=== PATIENT | female | born 1950 | race Caucasian/White ===

== ENCOUNTER 2020-03-29 12:32 | Inpatient (IN) | payer MEDICARE, OTHER ==
[~2020-03-29] VITALS: Ht 165.1 cm; Wt 56.8 kg
[~2020-03-29 12:32] MED LIST: BENTYL 20MG20 MG/TAB PO; EFFEXOR-XR150 MG PO; FOLIC ACID 11 MG/TA1 PO; LASIX 20MG TABL20 MG PO; PHENERGAN 25 TA25 MG PO; PLAQUENIL 200M200 MG PO; PREDNISONE 5MG5 MG PO; PREDNISONE10 MG PO; PROBIOTIC FORMU1 CAP PO; TOPROL XL 50MG50 MG PO; WELLBUTRIN XL150 MG PO; XARELTO20 MG PO
[2020-03-29 13:12] LABS: BASO # 0.1 (0.0-0.2); EOS % 0.3 % (0-4.0); GRAN # 3.3 (1.4-6.5); GRAN % 58.4 % (42.2-75.2); HEMOGLOBIN 10.4 g/dl (12.5-16.0); LYMPH # 1.5 (1.2-3.4); LYMPH % 26.7 % (20.0-51.0); MEAN CELL VOLUME 75 fl (80.0-100.0); MEAN CORPUSCULAR HEMOGLOBIN 23 pg (27.0-31.0); MEAN CORPUSCULAR HGB CONC 31 g/dl (33.0-37.0); MEAN PLATELET VOLUME 9.8 fl (7.4-10.4); MONO # 0.7 (0.1-0.6); MONO % 12.2 % (1.7-9.3); PLATELET COUNT 359 K/mm3 (130-400); RED BLOOD COUNT 4.54 M/mm3 (4.10-5.30); REDCELL DISTRIBUTION WIDTH-CV 20.4 % (11.5-14.5)
[2020-03-29 13:14] LABS: HEMATOCRIT 33.9 % (37.0-47.0)
[2020-03-29 13:28] LABS: ALBUMIN 2.8 gm/dL (3.5-5.0); BILIRUBIN,TOTAL 0.3 mg/dL (0.0-1.0); C-REACTIVE PROTEIN 5.7 mg/dL (0.0-0.9); CREATININE, serum 1.1 (0.52-1.25); POTASSIUM 3.4 mmol/L (3.4-5.0); TOTAL PROTEIN 4.9 gm/dL (6.4-8.2)
[2020-03-29 13:42] LABS: TROPONIN-I 0.182 ng/mL (0.000-0.035)
[2020-03-29 14:51] LABS: COLLECTION METHOD CLEAN CATCH
[2020-03-29] MEDS ORDERED: XARELTO20 MG PO (14:54)
[2020-03-29] MEDS ORDERED: PHENERGAN 25 TA25 MG PO (14:55)
[2020-03-29] MEDS ORDERED: TOPROL XL 50MG50 MG PO (14:56)
[2020-03-29] MEDS ORDERED: WELLBUTRIN XL150 MG PO (14:57)
[2020-03-29] MEDS ORDERED: ENTRESTO 24 MG1 EACH PO (14:57)
[2020-03-29 14:59] LABS: MUCOUS Present /lpf; PH 5 (5-8); SQUAMOUS EPITHELIAL 0-2 /hpf; URINE APPEARANCE Clear; URINE BACTERIA None Seen /hpf; URINE BILIRUBIN Negative (NEGATIVE); URINE BLOOD Negative (NEGATIVE); URINE COLOR Yellow; URINE GLUCOSE Negative (NEGATIVE); URINE KETONE Negative (NEGATIVE); URINE LEUKOCYTE ESTERASE Negative (NEGATIVE); URINE NITRATE Negative (NEGATIVE); URINE PROTEIN(semi-quant) Negative (NEGATIVE); URINE RBC 0-2 /hpf; URINE UROBILINOGEN Negative (NEGATIVE)
[2020-03-29] MEDS ORDERED: BENTYL 20MG20 MG/TAB PO (14:59)
[2020-03-29] MEDS ORDERED: PLAQUENIL 200M200 MG PO (14:59)
[2020-03-29] MEDS ORDERED: PREDNISONE10 MG PO (15:00)
[2020-03-29] MEDS ORDERED: SYNTHROID0.05 MG/TA PO (15:01)
[2020-03-29] MEDS ORDERED: MILLIPRED5 MG PO (15:02)
[2020-03-29] MEDS ORDERED: FOLIC ACID800 MCG PO (15:03)
[2020-03-29] MEDS ORDERED: PROBIOTIC FORMU1 CAP (15:04)
[2020-03-29] MEDS ORDERED: VITAMIN B122500 MCG SL (15:05)
[2020-03-29] MEDS ORDERED: OS-CAL 500 + D1 TAB (15:06)
[2020-03-29 18:22] VITALS: BP 115/78; PULSE 84; TEMP 99.2
[2020-03-29 19:16] VITALS: BP 110/70; PULSE 115; TEMP 98.4
--- NOTE | 2020-03-29 22:22 | NUR ---
Patient alert and oriented x4. Patient sitting up in bed and watching TV upon enter the room. Blood draw done at this time and sent to lab for checking Troponin level. Patient denies chest pain or SOB, and denies N/V. Breathing even and unlabored. Patient states having some minor headache and dizziness. Denies need for any PRN Tylenol for headache at this time. Left lower leg skin tear site covered with dry gauze. Dressing clean/dry/intact. Lots of bruises noted to bilateral arms and lower legs. Offered dinner tray. Patient is eating dinner. Patient denies any needs at this time. Call light within reach. Encouraged patient to call the nurse if she needs anything. Patient agreed.
[2020-03-29 23:23] VITALS: BP 115/75; PULSE 112; TEMP 98.7
[2020-03-30] VITALS (8 sets, daily range): BP systolic 106–122; BP diastolic 70–88; PULSE 98–144; TEMP 98.4–102.7
--- NOTE | 2020-03-30 02:07 | NUR ---
Lab draw done at 0000 am and sent to lab for checking of Troponin level. Assisted patient to the bathroom to void. Patient states feeling a little dizzy upon stand up. Encouraged patient to rest and pace activities. 1 person assist needed due to dizziness and unsteady gait. PRN Zofran given at 00:17 am per patient request for nausea. HOB elevated to 60 degree. Patient denies further needs at this time.
--- NOTE | 2020-03-30 04:39 | NUR ---
Patient HR was 130 at 04:30 am. Patient denies chest pain. Placed ECG order per protocol. Called respiratory therapy and updated HR. Respiratory therapy staff in the room with patient at this time.
--- NOTE | 2020-03-30 06:13 | NUR ---
Patient was c/o chest pain on numeric pain scale 6/10. Patient states having some nausea, chills, and shivering. Temp was 102.7 F at 05:15 am. PRN Morphine given for pain at 05:23 am. PRN Zofran given for nausea. PRN Tylenol given for fever. Tamera PEREZ notified Evi MILLER via phone. Lindsay consent signed by patient. Patient resting in bed with eyes closed at 06:00 am. Pain level on FLACC scale is 0 out of 10 at this time.
[2020-03-30 07:05] LABS: HEMOGLOBIN 10.4 g/dl (12.5-16.0); MEAN CELL VOLUME 76 fl (80.0-100.0); MEAN CORPUSCULAR HEMOGLOBIN 23 pg (27.0-31.0); MEAN CORPUSCULAR HGB CONC 31 g/dl (33.0-37.0); MEAN PLATELET VOLUME 10.4 fl (7.4-10.4); PLATELET COUNT 337 K/mm3 (130-400); RED BLOOD COUNT 4.47 M/mm3 (4.10-5.30); REDCELL DISTRIBUTION WIDTH-CV 20.4 % (11.5-14.5)
[2020-03-30 07:14] LABS: BILIRUBIN,TOTAL 0.3 mg/dL (0.0-1.0); CALCIUM 8.2 mg/dL (8.4-10.2); CHOLESTEROL RISK RATIO 4.1; CREATININE, serum 0.87 (0.52-1.25); MAGNESIUM 1.8 mg/dL (1.6-2.3); POTASSIUM 3.3 mmol/L (3.4-5.0); TOTAL PROTEIN 5.2 gm/dL (6.4-8.2)
[2020-03-30 07:27] LABS: HEMATOCRIT 33.9 % (37.0-47.0)
--- NOTE | 2020-03-30 08:03 | NUR ---
SHIFT REPORT RECEIVED AND PT SEEN shortly after. denies chest pain or any pain. on Tele pulse 129. AOX4. NPO since midnight for Lexiscan vs Heart cath. Call ligth within reach. no other needs at this time
--- NOTE | 2020-03-30 08:52 | NUR ---
PT 89% on RA at rest. placed on 2L NC with O2 sat improved to 94%. pulse increased to 150s during bed assessment but pt denies any chest pain. seen a few minutes prior by Dr Geronimo and order for pt to eat, start nitro patch and await results. pt also complains of head fullness. no nausea at this time but reported some overnight. call light within reach
--- NOTE | 2020-03-30 11:49 | NUR ---
Attempted to send in loop recorder reading @ 1030 but could not find device in patient. she is addamant she has one. charge nurse Tamiko requested to try
--- NOTE | 2020-03-30 12:35 | NUR ---
PT FOUND ON ROOM AIR. SHE FORGOT TO REPLACE OXYGEN ON FACE. 89% RA AND 94% 2L NC. EDUCATED IN IMPORTANCE OF NC
[2020-03-30 13:05] LABS: IRON,SERUM 43 ug/dL (35-150)
[2020-03-30 13:15] LABS: TOTAL IRON BINDING CAPACITY 295 ug/dL (265-497)
--- NOTE | 2020-03-30 16:10 | NUR ---
The patient is a Covid-19 PUI. PCR pending. Oral Surgery Technician met with the patient to complete initial intake. The patient lives alone in [place]. The patient has a walker which she uses to ambulate all the time and she has a wheelchair that she uses when she need to. The patient also has a shower chair and shower bar for support. Per EMR, the patient's PCP Dr. Kurtz and pharmacy is [facility] in [facility]. The patient does not have advanced directives. The patient is legally and has two children, Aneta and Amos. The patient is currently on 2L of oxygen and may need it at discharge. The patient is currently walking 20 feet with PT. She was open to sending referrals to post acute rehab, if needed. The first choice is [facility] and [facility]. Referrals sent. SW will follow to ensure the safest discharge disposition.
--- NOTE | 2020-03-30 16:41 | NUR ---
report given to oncoming nurse Shaheed. call light within reach. unable to send in loop recording as unable to find it on pt. She is certain she has a [employer] loop recorder. Rony currently charging
--- NOTE | 2020-03-30 22:55 | NUR ---
Patient sitting up in bed and watching TV upon enter the room. Patient A/Ox4. Patient denies chest pain while at rest. Patient reports she has chest pain upon ambulating to the bathroom. Patient denies SOB or dyspnea while at rest. Currently on Oxygen 2L via NC. Breathing even and unlabored. Patient states having some headache. PRN Tylenol and scheduled meds given per JUN. Patient also states feeling hot. Checked Temp at this time and it was 98.8F. Turned room heater down per patient request. Patient reports she is feeling dizzy and light headed when she ambulates to the bathroom. Encouraged patient to call the nurse when she needs to go to bathroom. Patient agreed. Left wrist IV site has no s/s of complications. Flushed with 5ml NS with no difficulty. Right forearm IV site slightly swollen and patient reports pain upon flushing with NS. Removed right forearm IV and covered with band-aid. Call light within reach. Patient denies further needs at this time. . Call light within reach.
[2020-03-31] VITALS (7 sets, daily range): BP systolic 84–128; BP diastolic 57–88; PULSE 84–124; TEMP 98–98.6
--- NOTE | 2020-03-31 06:14 | NUR ---
Patient slept well throughout the shift. Morning med given per order. Patient denies any pain or discomfort at this time. Call light within reach.
[2020-03-31 07:19] LABS: HEMOGLOBIN 10.5 g/dl (12.5-16.0); MEAN CELL VOLUME 76 fl (80.0-100.0); MEAN CORPUSCULAR HEMOGLOBIN 23 pg (27.0-31.0); MEAN CORPUSCULAR HGB CONC 30 g/dl (33.0-37.0); MEAN PLATELET VOLUME 10.4 fl (7.4-10.4); PLATELET COUNT 341 K/mm3 (130-400); RED BLOOD COUNT 4.54 M/mm3 (4.10-5.30); REDCELL DISTRIBUTION WIDTH-CV 21.2 % (11.5-14.5)
[2020-03-31 07:20] LABS: HEMATOCRIT 34.7 % (37.0-47.0)
--- NOTE | 2020-03-31 07:25 | NUR ---
REPORT received and pt seen shortly after. appears asleep. no s/s distress. pulse 80s on monitor.
[2020-03-31 07:32] LABS: CALCIUM 8.5 mg/dL (8.4-10.2); CREATININE, serum 0.89 (0.52-1.25); MAGNESIUM 2.1 mg/dL (1.6-2.3); POTASSIUM 3.9 mmol/L (3.4-5.0)
--- NOTE | 2020-03-31 08:48 | NUR ---
Morning meds given. pt denies current pain, nausea or cough. reports some chest pain/pressure with ambulation. encouraged to call for assistance. eating breakfast. reports dry cough overnght but none this shift. 90 to 94% O2 sat on RA. Tele on. made aware of negative Covid PCR. VSS. T 98.0 axillary
[2020-03-31 09:15] LABS: ANISOCYTOSIS 3+; BAND 5 % (0-10); BASOPHIL 1 % (0-2); LYMPHOCYTE 46 % (20.0-51.0); NEUTROPHILS 42 % (42.0-75.2); PLATELET ESTIMATE NORMAL (NORMAL)
[2020-03-31 09:16] LABS: HYPOCHROMIA 1+; OVALOCYTES 2+
--- NOTE | 2020-03-31 11:00 | NUR ---
LEFT GARCIA WOUND ASSESSED: longest length 6cm by widest 3cm. heart shaped. beefy red base with slight yellow to anterior aspect. previous petroleum dressing replaced with aquacell AG and optifoam. site mildly tender. scant serosanguinous drainage. no foul odor noted. some maceration to border but well defined. area cleansed with saline.
--- NOTE | 2020-03-31 13:09 | NUR ---
PT ambulated from bathroom @ 1130. reported feeling very dizzy and knees buckling. was able to ambulate 1 assist with encouragement to bed and recovered from tachypnea an tachycardia in <5 mins to a HR 95. VS taken and SBP <90 lying down. she reports increased diziness lying flat. orthostatic BPs done with increasing systolic with position increase. pulse increased as well to a max of 128 while standing. pt was breathing heavy, had to be reminded to open her eyes and hold herself up. denies passing out but reports being on the brink. She stated dizzy spells were happening often at home most often after visiting bathroom. Sheyla MILLER notified and order reveived for 500ml fluid bolus and to remove nitro patch. LT wrist IV infiltrated thus new one started. pt reported headache with dizziness episode but resolved once lying down. bed alarm on.
--- NOTE | 2020-03-31 22:40 | NUR ---
Patient laying in bed and watching TV upon enter the room. Patient pleasant, A/O x4. Patient denies chest pain, SOB, N/V, or dizziness while at rest. Patient reports she has chest pain, SOB, and dizziness upon getting up from bed and ambulates to the bathroom. Emphasized importance of safety and encouraged patient to call the nurse when she needs to go to bathroom. Patient verbalized understanding. Scheduled meds given per order. Patient took medications without difficulty. Right wrist IV site has no s/s of complications. Flushed with NS without any difficulty. Offered Charles crackers per patient request. Call light within reach. Patient denies further needs at this time.
[2020-04-01] VITALS (7 sets, daily range): BP systolic 102–125; BP diastolic 66–80; PULSE 78–115; TEMP 98–98.4
--- NOTE | 2020-04-01 04:22 | NUR ---
Assited patient to the bathroom at 03:30 am. Stand-by assist needed. Patient ambulates with a walker steady gait. No c/o chest pain, SOB or dizziness at this time. Patient reports she feels much better this morning. Call light within reach. Patient denies any needs.
[2020-04-01 06:35] LABS: BASO % 0.5 % (0.0-2.0); EOS % 0.7 % (0-4.0); GRAN # 2.8 (1.4-6.5); HEMOGLOBIN 10.3 g/dl (12.5-16.0); LYMPH # 2.2 (1.2-3.4); LYMPH % 38.1 % (20.0-51.0); MEAN CELL VOLUME 78 fl (80.0-100.0); MEAN CORPUSCULAR HEMOGLOBIN 24 pg (27.0-31.0); MEAN CORPUSCULAR HGB CONC 30 g/dl (33.0-37.0); MONO # 0.7 (0.1-0.6); MONO % 11.8 % (1.7-9.3); PLATELET COUNT 365 K/mm3 (130-400); RED BLOOD COUNT 4.37 M/mm3 (4.10-5.30); REDCELL DISTRIBUTION WIDTH-CV 21.5 % (11.5-14.5)
[2020-04-01 06:39] LABS: HEMATOCRIT 34.1 % (37.0-47.0)
[2020-04-01 06:52] LABS: CALCIUM 8.9 mg/dL (8.4-10.2); CREATININE, serum 0.86 (0.52-1.25); POTASSIUM 3.9 mmol/L (3.4-5.0)
--- NOTE | 2020-04-01 07:19 | NUR ---
BEdside shift report received. pt resting in bed with eyes closed. no s/s distress. bed alarm on. HR 75 on tele. no s/s distress
--- NOTE | 2020-04-01 08:40 | NUR ---
Morning meds given. pt reports mild acid reflux pain with breakfast. denies chect pain. dressing to lt martin intact and dry. LCTA. HRRR. call light within reach
--- NOTE | 2020-04-01 12:18 | NUR ---
attempted to call ortho tech yesterday with no response. Spoke to radiology today and she states tech was called in for ER case and contreras call this nurse regarding pending ABD US order. per radiology, US tech did not see order requisition. will F/U
--- NOTE | 2020-04-01 19:20 | NUR ---
Patient assessed at this time. Alert and oriented x 4, and able to make needs known. Denies having pain and discomfort at this time. Peripheral INT to right wrist. Denies SOB and dyspnea. LS CTA. Respirations even and unlabored. HRR. Telemetry in place: normal sinus. Capillary refill less than 3 seconds. Non-tenting skin turgor. BSAx4. Abdomen soft and non-tender. No edema. Dressing to skin tear on left martin is CDI. BUE and BLE have bruising/discoloration. Reminded patient that she will be NPO after midnight, and voiced understanding. Voices no questions, needs, or concerns at this time. Resting in bed with call light within reach.
[2020-04-02] VITALS (19 sets, daily range): BP systolic 91–143; BP diastolic 57–85; PULSE 75–113; TEMP 97.8–98.6
--- NOTE | 2020-04-02 06:16 | NUR ---
Patient has been resting in bed with call light within reach. Voices no questions, needs, or concerns at this time. Has been NPO for Lexiscan scheduled for today.
--- NOTE | 2020-04-02 07:34 | NUR ---
Patient is off the Medical floor and down in Nuc.Med for Lexiscan at this time
--- NOTE | 2020-04-02 10:00 | NUR ---
Patient just arrived back from her Lexiscan stress test at this time
--- NOTE | 2020-04-02 11:01 | NUR ---
Assessment completed, alert/oriented, vital signs stable, denies chest pains at this time, heart RRR/ SR on tele and slightly tachycardic at times, lungs CTA/ no reps.difficulty noted at rest, patient reports some baseline SOA, she has had her Lexiscan stress test and is now having ABD US done, I have discussed plan of care with hospitalist, will continue to monitor
--- NOTE | 2020-04-02 11:57 | NUR ---
SEE MERGE DOCUMENTATION FOR MEDICATION ADMINISTRATION TIMES AND INTRA/POST PROCEDURE SEDATION ASSESSMENTS. PLAN FOR FEMORAL ACCESS. PT RECIEVED 60MG LOVENOX AT 1000 TODAY. PT HAS NOT HAD LABS DRAWN TODAY. MD NOTIFIED OF LOVENOX ADMIN AND LABS; WILL PROCEED WITH PROCEDURE PER MD.
--- NOTE | 2020-04-02 13:00 | NUR ---
Patient arrived back from slab worker at this time, she is drowsy but arousable, vital signs stable, denies pain, right groin femoral access site is soft and dressing is C/D/I, no signs of bleeding or hematoma, will continue to monitor
--- NOTE | 2020-04-02 15:32 | NUR ---
patient continues to do well post heart cath, Vital signs stable, denies pain, I have called and given her daughter and update and discussed plan of care going forward
--- NOTE | 2020-04-02 15:37 | NUR ---
Plate Washer contacted Lore at [facility] who advised that while patient looks appropriate swing bed, they are currently full with no anticipated discharges at this time. JULIA collaborated with PAUL Christianson who advised patient would be ready for discharge tomorrow. JULIA spoke with PINA Burns Director who advised she can tentatively accept for tomorrow. JULIA will continue to follow.
--- NOTE | 2020-04-02 16:14 | NUR ---
flat time will end at 1630, VSS, right groin site is soft with no signs of hematoma/bleeding
--- NOTE | 2020-04-02 16:50 | NUR ---
flat time has ended, patient up to bathroom with stand by asssit, right groin site remains soft with no signs of bleeding or hematoma, vital signs stable
--- NOTE | 2020-04-02 19:20 | NUR ---
Patient assessed at this time. Alert and oriented x 4, and able to make needs known. Denies having pain and discomfort at this time. Peripheral INT to right forearm. Denies SOB and dyspnea, except with exertion. LS CTA. Respirations even and unlabored. HRR. Telemetry: normal sinus. Capillary refill less than 3 seconds. Non-tenting skin turgor. BSAx4. Abdomen soft and non-tender. No edema. Bruising/discoloration to BUE and BLE. Angioseal to right femoral heart cath site is CDI. No bruising/swelling/drainage noted to area. Patient's BP was 92/57. Did not get Entresto. Voices no questions, needs, or concerns at this time. Resting in bed with call light within reach.
--- NOTE | 2020-04-02 22:31 | NUR ---
Patient assisted to bathroom. Patient got dizzy and very short of breath with exertion. BP 96/64, SPO2 92% RA. SOB and dizzyness resolved after a few minutes of sitting on side of bed.
[2020-04-03 00:13] VITALS: BP 114/73; PULSE 80; TEMP 98.3
[2020-04-03 04:04] VITALS: BP 126/85; PULSE 77; TEMP 98.1
--- NOTE | 2020-04-03 05:40 | NUR ---
Patient has denied having pain and discomfort this shift. No further episodes of dyspnea with exertion or dizzyness. Voices no questions, needs, or concerns at this time. Resting in bed with call light within reach.
[2020-04-03 06:00] LABS: HEMATOCRIT 37.5 % (37.0-47.0); HEMOGLOBIN 11.2 g/dl (12.5-16.0); MEAN CELL VOLUME 78 fl (80.0-100.0); MEAN CORPUSCULAR HEMOGLOBIN 23 pg (27.0-31.0); MEAN CORPUSCULAR HGB CONC 30 g/dl (33.0-37.0); MEAN PLATELET VOLUME 10.4 fl (7.4-10.4); PLATELET COUNT 430 K/mm3 (130-400); REDCELL DISTRIBUTION WIDTH-CV 22.4 % (11.5-14.5)
[2020-04-03 06:13] LABS: CALCIUM 9.1 mg/dL (8.4-10.2); CREATININE, serum 0.97 (0.52-1.25); MAGNESIUM 2.2 mg/dL (1.6-2.3)
[2020-04-03 08:35] VITALS: BP 90/64; PULSE 93; TEMP 98.2
[2020-04-03] MEDS ORDERED: LIPITOR 40MG TA40 MG PO (10:11)
[2020-04-03] MEDS ORDERED: ASPIRIN 81M81 MG/TA2 PO (10:11)
[2020-04-03] MEDS ORDERED: MONODOX100 PO (10:11)
[2020-04-03] MEDS ORDERED: TYLENOL 325MG325 MG PO (10:11)
[2020-04-03] MEDS ORDERED: COLCRYS0.6 MG PO (10:12)
[2020-04-03] MEDS ORDERED: TOPROL XL 25MG25 MG PO (10:14)
[2020-04-03 12:30] VITALS: BP 105/68; PULSE 99; TEMP 98
--- NOTE | 2020-04-03 13:40 | NUR ---
General Warehouse Worker collaborated with Katy, IPR Director who advised she met with patient and can accept today. Patient has been tearful and at one point wanted to just go home. Katy followed up with patient who is agreeable to discharge to [facility]. SW contacted patient's daughter, Aneta to review discharge plan and provide contact information for IPR SW. No additional needs at this time.
[2020-04-03 15:27] VITALS: BP 105/68; PULSE 99; TEMP 98
--- NOTE | 2020-04-03 15:32 | NUR ---
Assessment completed, alert/oriented, vital signs stable, denies pain at this time, reprots intermittent dizziness and nausea/ blood pressures are soft and hospitalist is aware and adjusting meds, patient hesitant to go to inpatient rehab , will discuss with family first, she dneis other needs at this time
[2020-04-03] MEDS ORDERED: PREDNISONE 5MG5 MG PO (16:23)
== END 2020-04-03 15:35 | DRG 280 ==
LOC: COL.ER 12:32 → MEDICAL 15:16 → PEDS 16:33 → MEDICAL 03-31 09:42 → PEDS 03-31 09:42 → MEDICAL 03-31 23:00
PROVIDERS: Emergency Medicine; Physician Assistant; ADMIT Hospitalist
PROC: 4A023N7 Measurement of Cardiac Sampling and Pressure, Left Heart, Percutaneous Approach (ICD-10-PCS; principal; 2020-04-02)
PROC: B2111ZZ Fluoroscopy of Multiple Coronary Arteries using Low Osmolar Contrast (ICD-10-PCS; 2020-04-02)
DX: I31.9 Disease of pericardium, unspecified (principal); I21.A1 Myocardial infarction type 2; J96.01 Acute respiratory failure with hypoxia; M48.54XA Collapsed vertebra, not elsewhere classified, thoracic region, initial encounter for fracture; R65.10 Systemic inflammatory response syndrome (SIRS) of non-infectious origin without acute organ dysfunction; I50.32 Chronic diastolic (congestive) heart failure; D86.89 Sarcoidosis of other sites; E03.9 Hypothyroidism, unspecified; F32.9 Major depressive disorder, single episode, unspecified; I25.10 Atherosclerotic heart disease of native coronary artery without angina pectoris; Z20.828 Contact with and (suspected) exposure to other viral communicable diseases; I11.0 Hypertensive heart disease with heart failure; K44.9 Diaphragmatic hernia without obstruction or gangrene; M32.9 Systemic lupus erythematosus, unspecified; I95.9 Hypotension, unspecified; D53.9 Nutritional anemia, unspecified; I25.2 Old myocardial infarction; E87.6 Hypokalemia; K57.90 Diverticulosis of intestine, part unspecified, without perforation or abscess without bleeding; S91.002A Unspecified open wound, left ankle, initial encounter; Z79.01 Long term (current) use of anticoagulants; Z86.711 Personal history of pulmonary embolism
CPT/HCPCS: 99232-AI; 99233-AI; 99239; A9500; C1760; C1769; C1894; J1644; J1650; J1940; J2250; J2270; J2405; J2785; J2916; J3010; J7040; J7512; Q9967

== ENCOUNTER 2020-04-02 16:30 | Outpatient (RCR) | payer MEDICARE, OTHER ==
[2020-03-28 18:23] VITALS: BP 116/70; PULSE 102; TEMP 97.9
[~2020-04-02 16:30] MED LIST changes: +ENTRESTO 24 MG1 EACH PO; +FOLIC ACID800 MCG PO; +MILLIPRED5 MG PO; +OS-CAL 500 + D1 TAB; +PROBIOTIC FORMU1 CAP; +SYNTHROID0.05 MG/TA PO; +VITAMIN B122500 MCG SL
[2020-04-03] MEDS ORDERED: TYLENOL 325MG325 MG PO (10:11)
[2020-04-03] MEDS ORDERED: ASPIRIN 81M81 MG/TA2 PO (10:11)
[2020-04-03] MEDS ORDERED: MONODOX100 PO (10:11)
[2020-04-03] MEDS ORDERED: LIPITOR 40MG TA40 MG PO (10:11)
[2020-04-03] MEDS ORDERED: COLCRYS0.6 MG PO (10:12)
[2020-04-03] MEDS ORDERED: TOPROL XL 25MG25 MG PO (10:14)
[2020-04-03] MEDS ORDERED: PREDNISONE 5MG5 MG PO (16:23)
== END 2020-04-02 17:44 | disposition other institution (70) ==
LOC: EUO 16:30
DX: Z01.89 Encounter for other specified special examinations (principal)
CPT/HCPCS: J2916

== ENCOUNTER 2020-04-03 12:29 | Inpatient (IN) | payer MEDICARE, OTHER ==
[~2020-04-03] VITALS: Ht 165.1 cm; Wt 62.7 kg
[~2020-04-03 12:29] MED LIST changes: +ASPIRIN 81M81 MG/TA2 PO; +COLCRYS0.6 MG PO; +LIPITOR 40MG TA40 MG PO; +MONODOX100 PO; +TOPROL XL 25MG25 MG PO; +TYLENOL 325MG325 MG PO
[2020-04-03 15:18] VITALS: BP 92/65; PULSE 98; TEMP 98
[2020-04-03] MEDS ORDERED: PREDNISONE 5MG5 MG PO (16:23)
[2020-04-03 18:04] VITALS: BP 91/63; PULSE 99; TEMP 97.7
--- NOTE | 2020-04-03 18:21 | NUR ---
PT WAS BROUGHT OVER VIA WC BY TRACTOR MECHANIC HELPER AND MEDICAL NURSE TO ROOM 339 AND TRANSFERRED INTO BED. THIS NURSE CAME IN AND ORIENTED PT TO UNIT AND PERFORMED ASSESS. MED REC COMPLETED AND IPR CARE PLAN. PT C/O 10/20 PAIN THIS LATONYA AND RECEIEVED PRN APAP AND A K-PAD TO MIDDLE BACK. PT IS RESTING COMFORTABLY IN BED, CALL LIGHT WITHIN REACH, BED IN LOW.
--- NOTE | 2020-04-03 18:50 | NUR ---
RECEIVED CHANGE OF SHIFT REPORT FROM DAY SHIFT NURSE.
[2020-04-04 06:02] VITALS: BP 117/68; PULSE 102; TEMP 98.1
--- NOTE | 2020-04-04 07:40 | NUR ---
CHANGE OF SHIFT REPORT GIVEN TO DAY SHIFT NURSESUSANNE.
[2020-04-04 07:57] VITALS: BP 113/71; PULSE 119
--- NOTE | 2020-04-04 08:00 | NUR ---
PATIENT ASSISTED UP TO THE BATHROOM BY THIS NURSE. WHEN ASKED ABOUT PAIN PATIENT REPORTS POKING CHEST PAIN IN THE LEFT CHEST AND STATES THAT IT IS INTERMITTENT. PATIENT REQUESTING TYLENOL. PATIENT STATES THAT THIS IS NORMAL, BUT THEN SAYS IT IS NOT NORMAL. PATIENT IS BREATHING HEAVIER ONCE SHE RETURNED TO BED. VITALS OBTAINED. BP:113/71, HR:119, R:20, O2:99% ON ROOM AIR. CALLED AND NOTIFIED. TORB FOR EKG. ORDER ENTERED. RESPIRATORY THERAPY CALLED AND NOTIFIED OF ORDER. PATIENT CURRENTLY RESTING IN BED. ALARM ON. CALL LIGHT IN REACH.
--- NOTE | 2020-04-04 09:17 | NUR ---
PHYSICAL THERAPIST REPORTING THAT THE PATIENT IS COMPLAINING OF NAUSEA, PO PHENERGAN GIVEN AT THIS TIME. SHIFT ASSESSMENT COMPLETED. RIGHT GROIN ANGIOSEAL DRESSING REMOVED PER ORDERS. EDGES WELL APPROIMATED. ALLEVYN DRESSING TO LLE IS CD&I. PATIENT REPORTS DIZZINESS WHEN BEING UP THAT RESOLVES WITH SITTING. PATIENT DENIES ANY FURTHER COMPLAINTS WITH THE CHEST PAIN REPORTED EARLIER IN THE SHIFT. PATIENT STATES THAT SHE HAS SOME BACK AND SIDE PAIN. PATIENT GETS UP WITH CGA FOR SAFETY. PATIENT STEADY WHEN AMBULATING WITH THIS NURSE, GB AND WALKER.
--- NOTE | 2020-04-04 09:18 | NUR ---
Initial visit ; Patient thanked Juvenile Justice Specialist for looking in on her, wishing her well and keeping both her and her brother in Juvenile Justice Specialist's prayers.
--- NOTE | 2020-04-04 10:08 | NUR ---
PATIENTS DAUGHTER CLARITA RECORDS CALLED AND HOME PREDNISONE REVIEWED. PATIENT TAKES 15MG DAILY OF PREDNISONE WITH AN ADDITIONAL 5MG DAILY FOR FLARES. PATIENT HAS NOT BEEN TAKING EYE DROPS SINCE BEFORE SPRING OF THIS YEAR WHEN THE DAUGHTER TOOK OVER PATIENTS MEDICATION MANAGEMENT.
[2020-04-04 16:52] VITALS: BP 118/67; PULSE 98; TEMP 98
--- NOTE | 2020-04-04 21:00 | NUR ---
PT RESTING IN BED. PLEASANT AND COOPERATIVE. DENIES NEED FOR PAIN MED. PT REPORTS VOIDS WITH SOME URGENCY AND SLOW STREAM. DENIES BLADDER FULLNESS. LAST UA NEG 03/29. URINE CLEAR YELLOW- NO ODOR. TAKING DOXYCYCLINE. HAD SMALL SOFT FORMED BROWN BM. DENIES NEED FOR BOWEL MEDS TONIGHT. CALL LIGHT IN REACH. BED ALARM SET.
[2020-04-05 05:30] VITALS: BP 105/68; PULSE 96; TEMP 97.8
[2020-04-05 07:44] VITALS: BP 153/54; PULSE 79; TEMP 98.6
--- NOTE | 2020-04-05 14:36 | NUR ---
Patient had dry heaves when doing therapy and was given phergan. Patient is reporting constant pain to left abdomen below belly button radiates to the right constant pain. Patient has been having this pain in the abdomen for 3 or 4 months. She was going to be set up with a physican to address this when she gets out of the hospital. Patient currently resting in bed, call light in reach and bed alarm set. Will continue to monitor.
--- NOTE | 2020-04-05 15:35 | NUR ---
The patient is new to [facility]. SW met with the patient. The patient lives alone in [place]. The patient has a walker which she uses to ambulate all the time and she has a wheelchair that she uses when she need to. The patient also has a shower chair and shower bar for support. Per EMR, the patient's PCP Dr. Kurtz and pharmacy is [facility] in [place]. The patient does not have advanced directives. The patient is legally and has two children, Aneta and Amos. JULIA presented the Team Conference notes. She had no questions at this time. JULIA contacted the patient's daughter, Aneta to discuss family meeting for Thursday, 04/11 at 1330. She was in agreeance. The best number to reach her at #[phone]. JULIA collaborated the above information with Katy [facility] Director.
[2020-04-05 15:36] VITALS: BP 140/85; PULSE 105; TEMP 98.6
--- NOTE | 2020-04-05 19:33 | NUR ---
Patient has multiple hard stools that were pebble in shape through the day. Patient reporting pain to left side of abdomen that radiates to her right side. She refused any Tylenol through out the day until this evening when I was able to convince her to take some. Patient did finally agree to take some Miralax this afternoon, but then only took a couple of sips of the drink. Patient currently resting in bed, following being seen by PA. Reported off to night nurse.
--- NOTE | 2020-04-05 19:41 | NUR ---
Patient did not have blood in her stools, but this nurse did observe blood on the toilet tissue when patient would wipe herself. This was communicated to the PAFatimah. Will continue to monitor.
[2020-04-05 19:53] LABS: BASO % 0.3 % (0.0-2.0); GRAN # 9.1 (1.4-6.5); GRAN % 79.5 % (42.2-75.2); HEMOGLOBIN 10.5 g/dl (12.5-16.0); LYMPH # 1.7 (1.2-3.4); LYMPH % 15.1 % (20.0-51.0); MEAN CELL VOLUME 79 fl (80.0-100.0); MEAN CORPUSCULAR HEMOGLOBIN 24 pg (27.0-31.0); MEAN CORPUSCULAR HGB CONC 30 g/dl (33.0-37.0); MEAN PLATELET VOLUME 10.4 fl (7.4-10.4); MONO # 0.5 (0.1-0.6); MONO % 4.1 % (1.7-9.3); PLATELET COUNT 463 K/mm3 (130-400); RED BLOOD COUNT 4.43 M/mm3 (4.10-5.30); REDCELL DISTRIBUTION WIDTH-CV 22.9 % (11.5-14.5)
[2020-04-05 19:57] LABS: HEMATOCRIT 34.9 % (37.0-47.0)
[2020-04-05 20:02] LABS: ALBUMIN 3.5 gm/dL (3.5-5.0); BILIRUBIN,TOTAL 0.4 mg/dL (0.0-1.0); CALCIUM 9.3 mg/dL (8.4-10.2); CREATININE, serum 0.94 (0.52-1.25); POTASSIUM 4.5 mmol/L (3.4-5.0); TOTAL PROTEIN 5.9 gm/dL (6.4-8.2)
--- NOTE | 2020-04-05 20:24 | NUR ---
UA OBTAINED AND SENT TO LAB. AFTER RETURNING TO BED PT BECAME NAUSEATED. HAD PHENERGAN AT 1725. ABD SOFT. BS SLOW CONTINUOUS. STILL HAVING ABD PAIN FROM LT TO RT. HAD PRUNE JUICE EALIER. PT DYSPNEIC WITH ACTIVITY. O2 2 2L AT THIS TIME.
[2020-04-05 20:31] LABS: COLLECTION METHOD CLEAN CATCH
[2020-04-05 20:40] LABS: MUCOUS Present /lpf; PH 5 (5-8); SQUAMOUS EPITHELIAL 0-2 /hpf; URINE APPEARANCE Hazy; URINE BACTERIA None Seen /hpf; URINE BILIRUBIN Negative (NEGATIVE); URINE BLOOD Negative (NEGATIVE); URINE COLOR Yellow; URINE GLUCOSE Negative (NEGATIVE); URINE KETONE Trace (NEGATIVE); URINE LEUKOCYTE ESTERASE 2+ (NEGATIVE); URINE NITRATE Negative (NEGATIVE); URINE PROTEIN(semi-quant) Negative (NEGATIVE); URINE UROBILINOGEN Negative (NEGATIVE)
--- NOTE | 2020-04-05 21:25 | NUR ---
UA RESULTS INDICATE UTI. NEW ORDER FOR OMNICEFF. TOOK W/CRACKERS. PT UP TO VOID. DIFFICULTY WITH STREAM AND SL BURNING. AFEBRILE.
--- NOTE | 2020-04-06 02:06 | NUR ---
ASSISTED TO BSC FOR URINARY URGENCY. VOIDED EASIER W/LESS DISCOMFORT. NO BM YET. PASSING FLATUS. GOT BACK INTO BED AND BECAME NAUSEATED. DRY HEAVES. GAVE PHENERGAN AND TYLENOL. PT STILL VERY FORGETFUL. BUT COOPERATIVE AND PLEASANT.
[2020-04-06 05:53] VITALS: BP 124/73; PULSE 100; TEMP 98.3
--- NOTE | 2020-04-06 06:42 | NUR ---
NAUSEA MUCH BETTER. VOIDING EASIER WITH LESS PAIN. PT FORGETFUL AT TIMES. CALL LIGHT IN REACH.
--- NOTE | 2020-04-06 11:43 | NUR ---
Patient has attended therapies, with most of her time in the bathroom trying to have a BM. She has extreme dizziness with standing, of which is new from yesterday. Patient continues to have pain to her left abdomen that radiates to the middle of her abdomen. She has been getting tylenol for this and it has not been effective. She refuses any pain meds that will be stronger. Orthostatic BP's were attempted with patient not being able to tolerate the dizziness and nausea long enough to get the standing set of vitals. Patient was diagnosed with a UTI yesterday and was started on antibiotics last night. Patient has been able to take her meds, but with still having nausea. Dr. Gray was called and will be seeing patient today. Will continue to monitor.
[2020-04-06 12:00] VITALS: BP 94/60; PULSE 101
--- NOTE | 2020-04-06 15:27 | NUR ---
Very sharp 10/10 pain when urinating - then is gone after urinating and back to bed. Left chest pain constant started prior to getting up to use the bathroom. Pain of 4-5/10 at this time. VSS. Will continue to monitor.
[2020-04-06 15:33] VITALS: BP 103/66; PULSE 101; TEMP 98.6
[2020-04-06 16:58] VITALS: BP 90/61; PULSE 101; TEMP 97.9
[2020-04-06 19:55] VITALS: BP 120/78; PULSE 100; TEMP 98.4
--- NOTE | 2020-04-06 20:05 | NUR ---
PT RESTING IN BED, VISITING PER PHONE. MASK ON. DENIES ANY NEEDS AT PRESENT. CALL LIGHT IN REACH.
--- NOTE | 2020-04-06 20:30 | NUR ---
PT ASSESSMENT COMPLETE. SITTING UPRIGHT IN BED. A & O X4. SKIN COOL TO TOUCH. UPPER EXT. WITH SCATTERED BRUISING. SM SWOLLEN AREA ON INNER RIGHT FA. PT STATES FROM PREVIOUS IV SITE. C/O UPPER MID TO LEFT CHEST DISCOMFORT. MORE SO AFTER SHE AMBULATED BACK TO BED AFTER USING THE BATHROOM. FEELS A LITTLE MORE SOA AFTER BEING UP TO THE BR. HR IRREG. LS DIMINISHED IN RL BASE. ABDOMEN SOFT. BS X4. BILAT LE VERY COOL TO TOUCH. DISCOLORED,TO JUST ABOVE ANKLES. SOME SCATTERED BRUISED AREAS BILAT. RIGHT MORE DISCOLORED THAN LEFT. LEFT GARCIA WITH ALLEVYN DRESSING INTACT. WILL CHANGE WHEN HS MEDS GIVEN. BOTTOMS OF BOTH FEET DRY, SCALY, AND EACH WITH A SMALL CRACK. RIGHT IS ON THE HEEL AND LEFT IS IN MIDDLE OF THE FOOT. CALL LIGHT IN REACH.
[2020-04-07 06:12] VITALS: BP 114/75; PULSE 89; TEMP 98.3
--- NOTE | 2020-04-07 07:19 | NUR ---
PT SLEEPING IN BED AT BEDSIDE SHIFT REPORT. BED IN LOW, CALL LIGHT WITHIN REACH.
--- NOTE | 2020-04-07 15:58 | NUR ---
THIS NURSE SPOKE WITH MICHELLE GARCIA ABOUT REDNESS WITH DISTINCTIVE EDGES AROUND HEEL AND DISTAL FOOT/TOES THIS AFTERNOON. IRVING IS ASSESSING WHILE SHE ROUNDS.
[2020-04-07 16:32] VITALS: BP 110/54; PULSE 63; TEMP 97.3
--- NOTE | 2020-04-07 16:49 | NUR ---
PT SWABBED FOR COVID-19 IN RIGHT NARE DUE TO C/O FOOD NOT TASTING RIGHT ALONG WITH PT BASELINE OF SOB AND LACK OF ENERGY SINCE BEGINNING OF STAY.
--- NOTE | 2020-04-07 18:53 | NUR ---
PT TESTED FOR COVID TODAY, THE RAPID WAS NEGATIVE. DENIZ AND MICHELLE YEESEY DID NOT FEEL SHE NEEDED A SEND OUT PCR DONE. PT WAS EMOTIONAL AND CRIED WHEN TEST WAS BEING DONE. PT STATES NOTHING TASTES GOOD, NOT THAT SHE CANNOT TASTE. SHE ALSO STATED HER MILKSHAKE TODAY WAS GOOD, ONLY ATE 40% THOUGH. PT RECEIVED PRN APAP THIS AFTERNOON FOR GENERALIZED PAIN AND UTILIZED KPAD TO ABDOMEN AT THIS TIME.
[2020-04-08 03:05] VITALS: BP 117/67; PULSE 56; TEMP 98.9
--- NOTE | 2020-04-08 08:29 | NUR ---
PT'S RIGHT FOOT RED AND WARM TO TOUCH AROUND HER TOES AND THE HEEL OF HER FOOT. STATES SHE HAS HAD THIS IN THE PAST. NO OTHER AREAS NOTED. TAKES MEDS WITH NO PROBLEMS. REST IN BED. BED ALARM ON AND CALL LIGHT IN REACH. DRESSING REMAINS INTACT TO LEFT LOWER CHIN AREA.
--- NOTE | 2020-04-08 10:20 | NUR ---
Patient resting in bed, call light in reach and bed alarm set. Patient denies any questions at this time. She is independent with eating and in pleasent mood today. Will continue to monitor.
--- NOTE | 2020-04-08 10:44 | NUR ---
Patient continues to have redness to her right foot. She is able to feel all areas of foot, but does report that digits 3,4 and 5 feel very full to right foot. Cap refill is <3 with all toes. This nurse applied Lotrimin cream per orders. Patient continues to have some left chest pain and given prn tylenol with some effect. Patient was having some dizziness this morning. Vital signs checked per patient request with BP 113/82 so were stable. Will continue to monitor.
--- NOTE | 2020-04-08 12:29 | NUR ---
Patient reporting that the dizziness feels more like a drunk type feeling. She was seen by PAUL Carrion and did communicate this symptom to her.
[2020-04-08 15:01] LABS: BASO % 0.5 % (0.0-2.0); EOS % 0.2 % (0-4.0); GRAN # 4.6 (1.4-6.5); GRAN % 80.8 % (42.2-75.2); HEMOGLOBIN 10.5 g/dl (12.5-16.0); LYMPH # 0.9 (1.2-3.4); LYMPH % 15.9 % (20.0-51.0); MEAN CELL VOLUME 81 fl (80.0-100.0); MEAN CORPUSCULAR HEMOGLOBIN 24 pg (27.0-31.0); MEAN CORPUSCULAR HGB CONC 30 g/dl (33.0-37.0); MEAN PLATELET VOLUME 10.4 fl (7.4-10.4); MONO # 0.1 (0.1-0.6); MONO % 2.1 % (1.7-9.3); PLATELET COUNT 422 K/mm3 (130-400); RED BLOOD COUNT 4.34 M/mm3 (4.10-5.30); REDCELL DISTRIBUTION WIDTH-CV 23.7 % (11.5-14.5)
[2020-04-08 15:02] LABS: HEMATOCRIT 35.1 % (37.0-47.0)
--- NOTE | 2020-04-08 15:02 | NUR ---
Patient reporting that she is feeling like she is going to faint. This nurse is taking vitals at this time.
[2020-04-08 15:13] LABS: CALCIUM 9.3 mg/dL (8.4-10.2); CREATININE, serum 1.33 (0.52-1.25); POTASSIUM 4.5 mmol/L (3.4-5.0)
[2020-04-08 15:26] VITALS: BP 101/75; PULSE 96
--- NOTE | 2020-04-08 15:51 | NUR ---
Orthostatic BP's were taken and reported to PAUL Canchola. See new orders for EKG and CXR.
[2020-04-08 18:19] VITALS: BP 97/62; PULSE 96; TEMP 98.5
--- NOTE | 2020-04-08 20:00 | NUR ---
PT THOUGHT PROCESS IS VERY SCATTERED AND FORGETFUL AT TIMES. NEEDS MUCH CUING FOR POOR SAFETY JUDGEMENT. NO FURTHER DIZZINESS BUT C/O H/A AND NAUSEA. GAVE TYLENOL AND PHENERGAN. NO VOMITING NOTED. ASSISSTED TO BR. HAD SMALL SF BROWN BM.
[2020-04-09 05:49] VITALS: BP 138/83; PULSE 88; TEMP 97.7
--- NOTE | 2020-04-09 06:56 | NUR ---
PT SLEEPING IN BED AT BEDSIDE SHIFT REPORT. BED IN LOW, CALL LIGHT WITHIN REACH.
[2020-04-09 07:46] LABS: BASO # 0.1 (0.0-0.2); BASO % 0.8 % (0.0-2.0); EOS % 0.5 % (0-4.0); GRAN # 3.3 (1.4-6.5); GRAN % 42.2 % (42.2-75.2); HEMOGLOBIN 10.8 g/dl (12.5-16.0); LYMPH # 3.8 (1.2-3.4); LYMPH % 47.6 % (20.0-51.0); MEAN CELL VOLUME 81 fl (80.0-100.0); MEAN CORPUSCULAR HEMOGLOBIN 25 pg (27.0-31.0); MEAN CORPUSCULAR HGB CONC 30 g/dl (33.0-37.0); MEAN PLATELET VOLUME 10.7 fl (7.4-10.4); MONO # 0.7 (0.1-0.6); MONO % 8.4 % (1.7-9.3); PLATELET COUNT 402 K/mm3 (130-400); REDCELL DISTRIBUTION WIDTH-CV 23.7 % (11.5-14.5)
[2020-04-09 07:56] LABS: HEMATOCRIT 35.8 % (37.0-47.0)
[2020-04-09] MEDS ORDERED: EFFEXOR-XR150 MG PO (07:57)
[2020-04-09 08:06] LABS: CALCIUM 8.8 mg/dL (8.4-10.2); CREATININE, serum 1.09 (0.52-1.25); MAGNESIUM 2.2 mg/dL (1.6-2.3); POTASSIUM 3.4 mmol/L (3.4-5.0)
--- NOTE | 2020-04-09 11:07 | NUR ---
PT C/O CHEST PAIN AFTER COMING BACK FROM PT. DESCRIBED IT CONSTANT AFTER STARTING WHILE WALKING BACK INTO ROOM. VS WERE P:95 AFTER JUST WALKING, O2: 98% RA, BP:107/66, 97.8 TEMP, R:18. DR. CANO NOTIFIED, PT IN BED WITH FEET ELEVATED AND HEAD LOWERED.
[2020-04-09 11:15] VITALS: BP 107/66; PULSE 95; TEMP 97.8
--- NOTE | 2020-04-09 14:01 | NUR ---
Admission QIM scores were reviewed by the team. Code of 4 chosen for toilet hygiene was determined by team discussion to be the most usual performance for this patient during the assessment period. Code of 3 chosen for toileting transfers was determined by team discussion to be the most usual performance for this patient during the assessment period. Code of 3 for chair/bed to chair transfers was determined by team discussion to be the most usual performance for this patient during the assessment period.--Katy Gayle, PD
--- NOTE | 2020-04-09 14:34 | NUR ---
JULIA met with the patient to follow up after the weekend. The patient states that it was different. She states that it was not much of a Register for her, but that she is appreciative of all the staff here and what they are doing for her. JULIA provided support. She had no other concerns for SW at this time.
[2020-04-09 16:14] VITALS: BP 107/67; PULSE 95; TEMP 97.8
--- NOTE | 2020-04-09 17:58 | NUR ---
PT STATED THIS AM THAT SHE WAS AN EFFEXOR 150 MG ONCE A DAY AT HOME. THIS MEDICATION WAS NOT CONTINUED WHEN SHE CAME TO THE HOSPITAL. WAS RESARTED AND WILL BE GIVEN TOMORROW AM. SOME OF SYMTPOMS OF DIZZINESS, HEADACHE, CONFUSION MAY BE WITHDRAWAL FROM THIS. PT'S SAFETY AWARENESS IS LACKING AND PT/OT NOTIFIED ABOUT THIS. TRANSFERS WELL OTHER THEN IMPULSIVE.
[2020-04-10 05:42] VITALS: BP 117/79; PULSE 92; TEMP 97.4
--- NOTE | 2020-04-10 10:18 | NUR ---
Patient reporting nausea and back pain 10/10. She was given prn tylenol this morning. Will continue to monitor.
[2020-04-10 18:11] VITALS: BP 85/59; PULSE 95; TEMP 97.8
--- NOTE | 2020-04-10 19:33 | NUR ---
PT CALLS FOR ASSIST TO BR. USES WALKER AND 1 ASSIST. STEADY GAIT. VOIDS UNMEASURED. LIDODERM PATCH ON BACK REMOVED. ASSESSMENT COMPLETE. BACK TO BED. CALL LIGHT IN REACH. BED ALARM ON.
--- NOTE | 2020-04-10 19:51 | NUR ---
Patient attended all therapies today, but continues to have dizziness when standing. Pain was worse today and was mainly in her back. See new orders for Tramadol. Patient tolerated meals today, but continues to have nausea. Given prn nausea meds. Will continue to monitor.
--- NOTE | 2020-04-11 02:22 | NUR ---
PT ALERT AND TALKATIVE RESTING IN BED. DRESSING CHANGED TO LLE. XERFORM TO OPEN AREA AND THEN COVERED WITH ALLEYN. BILAT FEET COLD TO TOUCH. RLE MUCH DARKER IN COLOR THAN LLE. RIGHT FOOT WITH SLIGHT REDNESS AROUND TOES AND HEEL. CREAM APPLIED. CALL LIGHT IN REACH. BED ALARM ON.
[2020-04-11 05:51] VITALS: BP 112/65; PULSE 87; TEMP 97.8
--- NOTE | 2020-04-11 08:32 | NUR ---
Patient resting in bed, call light in reach and bed alarm set. Patient ate breakfast and was given phenergan for nausea prior to eating.
--- NOTE | 2020-04-11 10:08 | NUR ---
Patient scrapped her right forearm on her bracelet which caused skin tear 2.5 cm wide. Area was cleaned with Normal saline, patted dry and applied steri strips, non adhesive pad and secured with tegaderm. Patient tolerated reporting no pain. Will continue to monitor.
--- NOTE | 2020-04-11 10:36 | NUR ---
Carlene Traore, financial counselor reports that a Medicaid application was completed with the patient.
--- NOTE | 2020-04-11 13:42 | NUR ---
The team had a team conference meeting for the patient this day. The team is recommending an anticipated discharge on Thursday, 04/17 with home health serivces. The team's equipment recommendation for patient purchase are a tub transfer bench and grab bars in bathroom. After the team meeting, Biophysics Professor attended a family meeting for the patient. Also present, Katy the IPR Director, PT/OT/ST staff. The patient's daughter, Aneta was on speaker phone. Katy began the meeting stating it's purspose. PT/OT/ST discussed the patient's progress and questions were answered. Aneta and the patient were agreeable to a Monday 04/17 discharge and to receiving home health services. SW to follow up with the patient and Aneta with Medicare.gov's list of agencies.
--- NOTE | 2020-04-11 14:43 | NUR ---
Fitness And Wellness Instructor met with the patient to present the Team Conference note and discuss discharge recommendations. The team is recommending a tentative discharge on Thursday, 04/17 with home health services. JULIA provided Medicare.gov's list of home health agencies. The patient will review the list with her daughter, Aneta. JULIA contacted Aneta regarding home health choices. Aneta to review the choices and discuss them with the patient. All questions were answered. SW awaiting home health choice.
[2020-04-11 16:43] VITALS: BP 93/59; PULSE 98; TEMP 97.8
--- NOTE | 2020-04-11 17:54 | NUR ---
Patient attended all therapies today. She tolerated diet well with little nausea reported. She did have an episode where she became unresponsive for a couple of seconds, when working with OT. VSS. Patient was doing an activity, but then sat down and was fine. Will continue to monitor.
--- NOTE | 2020-04-11 19:10 | NUR ---
Patient complaining of pain to middle of chest that was sharp and lasted for 10 minutes. VSS 127/76, HR 107
[2020-04-11 19:11] VITALS: BP 127/76; PULSE 107
--- NOTE | 2020-04-11 22:04 | NUR ---
patient resting in bed and states she is feeling better than she was earlier. PAtient rates her pain 2/10 in her chest and back. Bed alarm is on and call light is in reach. Patient has no other needs at this time.
[2020-04-12 05:33] VITALS: BP 101/65; PULSE 84; TEMP 97.9
[2020-04-12 06:53] LABS: BASO % 0.6 % (0.0-2.0); EOS # 0.1 (0.0-0.7); EOS % 1.7 % (0-4.0); GRAN # 3.3 (1.4-6.5); GRAN % 47.7 % (42.2-75.2); HEMOGLOBIN 10.1 g/dl (12.5-16.0); LYMPH # 2.9 (1.2-3.4); MEAN CELL VOLUME 82 fl (80.0-100.0); MEAN CORPUSCULAR HEMOGLOBIN 24 pg (27.0-31.0); MEAN CORPUSCULAR HGB CONC 30 g/dl (33.0-37.0); MEAN PLATELET VOLUME 10.8 fl (7.4-10.4); MONO # 0.6 (0.1-0.6); MONO % 8.6 % (1.7-9.3); PLATELET COUNT 366 K/mm3 (130-400); RED BLOOD COUNT 4.16 M/mm3 (4.10-5.30); REDCELL DISTRIBUTION WIDTH-CV 23.9 % (11.5-14.5)
[2020-04-12 06:59] LABS: CALCIUM 8.6 mg/dL (8.4-10.2); CREATININE, serum 0.95 (0.52-1.25); MAGNESIUM 2.2 mg/dL (1.6-2.3); POTASSIUM 3.7 mmol/L (3.4-5.0)
--- NOTE | 2020-04-12 07:04 | NUR ---
PT SLEEPING IN BED AT BEDSIDE SHIFT REPORT. BED IN LOW, CALL LIGHT WITHIN REACH, BED ALARM ON.
--- NOTE | 2020-04-12 15:39 | NUR ---
JULIA met with the patient to follow up on preference for home health. The patient reports that she has not had a chance to look over the list yet, but will do so this weekend. She states that her daughter is getting her place all ready for her to return home. She had no other questions for JULIA at this time.
[2020-04-12 17:11] VITALS: BP 111/68; PULSE 100; TEMP 98.1
--- NOTE | 2020-04-12 18:16 | NUR ---
PT C/O MILD PAIN THIS AM AND UTILIZED KPAD FOR BACK PAIN AT THIS TIME. PT HAS DENIED PAIN SINCE. REPORTED NAUSEA THIS AFTERNOON AND RECEIEVED PRN PHENERGAN WHICH RELIEVED IT, WELL SIPPING [place]. PT CONTINUES TO REPORT DIZZINESS WHEN WORKING WITH THERAPY AND MID CHEST PAIN.
--- NOTE | 2020-04-12 19:27 | NUR ---
RECEIVED CHANGE OF SHIFT REPORT FROM DAY SHIFT NURSE.
[2020-04-13 05:59] VITALS: BP 114/64; PULSE 90; TEMP 98.2
--- NOTE | 2020-04-13 07:31 | NUR ---
CHANGE OF SHIFT REPORT GIVEN TO DAY SHIFT NURSEANDREW
[2020-04-13 10:15] VITALS: BP 88/60; PULSE 116
--- NOTE | 2020-04-13 10:30 | NUR ---
Patient back from therapy, states she feels dizzy and as if though she is having palpitations. Checked BP at 88/60, HR 116. Notified Sheyla MILLER, order for fluid bolus and EKG. Notified RT. IV start to right forarm x 2 attempts. Denies further needs at this time.
[2020-04-13 13:03] VITALS: BP 110/73; PULSE 103
[2020-04-13 17:41] VITALS: BP 123/69; PULSE 107; TEMP 98.1
--- NOTE | 2020-04-13 18:18 | NUR ---
Patient has done well throughout the day. BP better after fluid bolus, encouraged patient to increase fluid intake. Denies further needs at this time. Will report off to night court magistrate.
--- NOTE | 2020-04-13 19:07 | NUR ---
RECEIVED CHANGE OF SHIFT REPORT FROM DAY SHIFT NURSE. BED ALARM ON WHILE PATIENT SITTING UP IN BED FINISHING UP EVENING MEAL.
--- NOTE | 2020-04-13 20:00 | NUR ---
REPORTS DIZZINESS AT TIMES WHEN UP OUT OF BED, GAIT SLIGHTLY UNSTEADY WHEN STARTS TO C/O DIZZINESS.
[2020-04-13 22:34] VITALS: BP 108/63; PULSE 101
[2020-04-14 06:02] VITALS: BP 121/78; PULSE 100; TEMP 97.9
--- NOTE | 2020-04-14 07:29 | NUR ---
CHANGE OF SHIFT REPORT GIVEN TO DAY SHIFT NURSEANOOP.
--- NOTE | 2020-04-14 07:33 | NUR ---
PT SLEEPING IN BED AT BEDSIDE SHIFT REPORT. CALL LIGHT WITHIN REACH, BED IN LOW.
--- NOTE | 2020-04-14 13:44 | NUR ---
DRSG TO PT'S LEFT GARCIA CHANGED TODAY. XEREFORM, AND ALLEVYN DRSG PLACED. WOUND BED IS PINK AND EDGES ARE HEALING.
--- NOTE | 2020-04-14 15:55 | NUR ---
PT AMBULATED THE HALLS WITH THIS NURSE THIS AM 150+ FEET. PT TOLERATED WELL. PT C/O BACK PAIN THIS AFTERNOON, KPAD APPLIED AND RELIEVED. PT IN HIGH SPIRITS TODAY AND DOING WELL. BED ALARM IN PLACE FOR SOME IMPULSIVITY.
[2020-04-14 16:05] VITALS: BP 94/63; PULSE 97; TEMP 98
--- NOTE | 2020-04-14 18:37 | NUR ---
Patient doing well. Denies pain at this time. Denies further needs at this time. Will report off to police shift commander.
--- NOTE | 2020-04-14 18:50 | NUR ---
RECEIVED CHANGE OF SHIFT REPORT FROM DAY SHIFT NURSE.
--- NOTE | 2020-04-14 19:30 | NUR ---
RECEIVED CHANGE OF SHIFT REPORT FROM DAY SHIFT NURSE.
[2020-04-14 20:57] VITALS: BP 120/79; PULSE 87; TEMP 97.7
--- NOTE | 2020-04-14 21:00 | NUR ---
PATIENT CONTINUES TO HAVE INTERMITTENT DIZZINESS/LIGHTHEADEDNESS WHEN UP, CONTINUES TO HAVE ASST X1 WHEN UP OUT OF BED W/GB AND WW WITH OBSERVED STEADY GAIT. DENIES CHEST PAIN/SHORTNESS OF BREATH. DENIES NUMBNESS/TINGLING TO EXTREMITIES AND DENIES NAUSEA AT THIS TIME. BED ALARM ON.
--- NOTE | 2020-04-15 02:06 | NUR ---
BED ALARM ON, DOES NOT WAKEN WHEN ROOM ENTERED BY STAFF. OBSERVED BREATHING NONLABORED AND EVEN.
[2020-04-15 05:00] VITALS: BP 125/74; PULSE 97; TEMP 97.6
--- NOTE | 2020-04-15 07:01 | NUR ---
CHANGE OF SHIFT REPORT GIVEN TO DAY SHIFT NURSEANOOP.
--- NOTE | 2020-04-15 07:12 | NUR ---
PT RESTING IN BED AT BEDSIDE SHIFT REPORT. BED IN LOW, CALL LIGHT WITHIN REACH, BED ALARM ON.
[2020-04-15 08:04] VITALS: BP 108/72
[2020-04-15 17:02] VITALS: BP 94/58; PULSE 107; TEMP 98.4
--- NOTE | 2020-04-15 18:03 | NUR ---
PT VOCALIZED FEELING LIKE SHE WANTED TO GIVE UP TODAY. FELT OVERWHELMED AND UNCLEAR WHY SHE WAS HAVING ALL THESE SYMPTOMS AND FELT LIKE THERE WERE NO ANSWERS. DONIS MILLER, DISCUSSED HER DIAGNOSES WITH PT AND WHY SHE IS FEELING SOME OF HER SYMPTOMS, THIS RELIEVED HER SOMEWHAT. ENCOURAGED PT TO TAKE THINGS SLOWER, TO SIT AT EDGE OF BED BEFORE STANDING AND TO AMBULATE SLOWER. ENCOURAGED TO EAT SLOW AND TAKE BREAKS, REMINDED PT HOW IMPORTANT IT IS TO EAT FOR HEALING.
--- NOTE | 2020-04-15 19:02 | NUR ---
RECEIVED CHANGE OF SHIFT REPORT FROM DAY SHIFT NURSE.
--- NOTE | 2020-04-15 20:01 | NUR ---
PATIENT REPORTS STILL HAS DIZZINESS WHEN UP AFTER HAVING BM, REPORTS HAS HAD SEVERAL LOOSE FORMED BMS, REPORTS THAT IS NORMAL FOR HER AND SHE TAKE IMODIUM FOR C/O. DENIES CHEST PAIN.
[2020-04-16 04:39] VITALS: BP 110/70; PULSE 91; TEMP 97.8
--- NOTE | 2020-04-16 06:57 | NUR ---
CHANGE OF SHIFT REPORT GIVEN TO DAY SHIFT NURSEESTUARDO.
--- NOTE | 2020-04-16 09:36 | NUR ---
PT SITTING UP IN BED EATING BREAKFAST. DENIES N/V, ATE 80% OF BREAKFAST. PT DENIES PAIN AT THIS TIME. PT IS A/O X3.
--- NOTE | 2020-04-16 15:31 | NUR ---
JULIA met with the patient to follow up and review d/c plan for tomorrow. The patient states that she is doing wonderful and ready for discharge tomorrow. JULIA presented and read the IM form outloud to the patient. The patient verbalized understanding and gave JULIA approval to sign the form on her behalf. JULIA provided her with a copy. JULIA followed up about preference for home health. The patient chose [facility]. JULIA contacted and faxed a referral to [facility] at [facility]. Camden reports that they can accept the patient for services.
[2020-04-16 17:55] VITALS: BP 116/69; PULSE 91; TEMP 98.1
--- NOTE | 2020-04-16 21:00 | NUR ---
PATIENT RESTING IN BED WITH NO COMPLAINTS OF PAIN. SKIN TEAR ON R ARM AND LEFT LEG WITH BANDAGE OVER THEM. CALL LIGHT IS IN REACH. NO OTHER NEEDS AT THIS TIME.
[2020-04-17 05:39] VITALS: BP 114/72; PULSE 91; TEMP 97.7
[2020-04-17] MEDS ORDERED: COLCRYS0.6 MG PO (08:37)
[2020-04-17] MEDS ORDERED: CLOTRIM ANTIFUNGAL1% TP (08:38)
[2020-04-17] MEDS ORDERED: PHENERGAN 25 TA25 MG PO (08:39)
[2020-04-17] MEDS ORDERED: ENTRESTO 24 MG1 EACH PO (08:42)
--- NOTE | 2020-04-17 09:40 | NUR ---
The patient is to discharge back home today, 04/17, with home health services for usp/PT/OT/ST from [facility]. JULIA notified and faxed d/c orders to [facility] at [facility]. No additional needs at this time.
--- NOTE | 2020-04-17 13:30 | NUR ---
Discharge QIM scores were reviewed by the team. Code of 6 chosen for oral hygiene was determined by team discussion to be the most usual performance before interventions for this patient during the assessment period. Code of 6 chosen for toilet hygiene was determined by team discussion to be the most usual performance for this patient during the assessment period. Code of 6 chosen for toileting transfers was determined by team discussion to be the most usual performance for this patient during the assessment period. Code of 6 for sit to stand was determined by team discussion to be the most usual performance for this patient during the assessment period. Code of 6 chosen for walk 10 feet was determined by team discussion to be the most usual performance for this patient during the assessment period.--Katy Gayle, PD
--- NOTE | 2020-04-17 16:04 | NUR ---
Call placed to scheduling and patient will be going in for an MRI tomorrow morning at 10 AM. Her daughter has been updated. Daughter will need to reschedule the appointment with Dr. Garcia since it will conflict with the MRI tomorrow. Daughter is aware of this and Dr. Garcia's office was called and they know that the appointment needs to be rescheduled. They will be calling patient's daughter.
--- NOTE | 2020-04-17 17:00 | NUR ---
Patient Health Summary, Discharge Summary, and Home Meds printed and reviewed with patient and daughter. Stressed importance of follow up appointments. Called prescription for Lipitor, Aspirin and Tylenol into pharmacy of choice so they could have meds ready for patient upon arrival. Belongings gathered by RN/Sarai including purse, phone, billfold, phone battery charger. Patient transported via wheelchair by Lashaun/AIME and seatbelted for ride home. Patient and daughter denied questions.
--- NOTE | 2020-04-18 16:04 | NUR ---
Call placed to patient's PCP, Dr. Kurtz to request that she talk with patient about seeing a reumatologist per Dr. Leal's verbal order following patient's discharge from the hospital yesterday. Dr. Kurtz's nurse reported that she would communicate this to Dr. Kurtz.
== END 2020-04-17 17:00 | disposition home health service (06) | DRG 302 ==
PROVIDERS: Physician Assistant; ADMIT Internal Medicine
DX: I51.89 Other ill-defined heart diseases (principal); J96.01 Acute respiratory failure with hypoxia; I31.9 Disease of pericardium, unspecified; I50.32 Chronic diastolic (congestive) heart failure; N39.0 Urinary tract infection, site not specified; I25.10 Atherosclerotic heart disease of native coronary artery without angina pectoris; R00.1 Bradycardia, unspecified; M32.9 Systemic lupus erythematosus, unspecified; D86.9 Sarcoidosis, unspecified; D50.9 Iron deficiency anemia, unspecified; I95.9 Hypotension, unspecified; I11.0 Hypertensive heart disease with heart failure; E03.9 Hypothyroidism, unspecified; I25.2 Old myocardial infarction; F32.9 Major depressive disorder, single episode, unspecified; Z73.6 Limitation of activities due to disability; R26.89 Other abnormalities of gait and mobility; M48.54XD Collapsed vertebra, not elsewhere classified, thoracic region, subsequent encounter for fracture with routine healing; K57.90 Diverticulosis of intestine, part unspecified, without perforation or abscess without bleeding; L89.629 Pressure ulcer of left heel, unspecified stage; L89.619 Pressure ulcer of right heel, unspecified stage; R19.7 Diarrhea, unspecified; S81.802D Unspecified open wound, left lower leg, subsequent encounter; K59.00 Constipation, unspecified; R11.0 Nausea; E87.6 Hypokalemia; R53.81 Other malaise; Z79.899 Other long term (current) drug therapy; Z79.01 Long term (current) use of anticoagulants; Z79.52 Long term (current) use of systemic steroids; Z79.82 Long term (current) use of aspirin; Z85.41 Personal history of malignant neoplasm of cervix uteri; Z86.711 Personal history of pulmonary embolism; Z91.81 History of falling
CPT/HCPCS: 99222-AI; 99231-AI; 99232-AI; 99239; J7040; J7512

== ENCOUNTER → 2020-04-18 | Outpatient (CLI) | payer MEDICARE, OTHER ==
[~2020-04-18] MED LIST changes: +CLOTRIM ANTIFUNGAL1% TP
== END ==
LOC: COL.RAD 09:01
DX: D86.89 Sarcoidosis of other sites (principal)
CPT/HCPCS: A9585

== ENCOUNTER → 2020-05-17 | Outpatient (CLI) | payer MEDICARE | LOC: COL.VAS 05-16 09:19 | DX: M79.89 Other specified soft tissue disorders (principal); M79.671 Pain in right foot; R60.0 Localized edema ==

== ENCOUNTER 2020-07-22 20:03 | Emergency (ER) | payer MEDICARE ==
[~2020-07-22] VITALS: Ht 165.1 cm; Wt 56.4 kg
[2020-07-22 20:04] VITALS: TEMP 98.5
[2020-07-22 21:02] LABS: BASO % 0.4 % (0.0-2.0); GRAN # 6.3 (1.4-6.5); GRAN % 76.8 % (42.2-75.2); HEMATOCRIT 38.3 % (37.0-47.0); HEMOGLOBIN 11.5 g/dl (12.5-16.0); LYMPH # 1.4 (1.2-3.4); LYMPH % 16.7 % (20.0-51.0); MEAN CELL VOLUME 81 fl (80.0-100.0); MEAN CORPUSCULAR HEMOGLOBIN 24 pg (27.0-31.0); MEAN CORPUSCULAR HGB CONC 30 g/dl (33.0-37.0); MEAN PLATELET VOLUME 10.8 fl (7.4-10.4); MONO # 0.5 (0.1-0.6); MONO % 5.6 % (1.7-9.3); PLATELET COUNT 270 K/mm3 (130-400); RED BLOOD COUNT 4.76 M/mm3 (4.10-5.30); REDCELL DISTRIBUTION WIDTH-CV 18.9 % (11.5-14.5)
[2020-07-22 21:08] LABS: ALANINE AMINOTRANSFERASE 22 U/L (4-34); ALBUMIN 3.8 gm/dL (3.5-5.0); ALKALINE PHOSPHATASE 70 U/L (50-136); ANION GAP 12 mmol/L (7-16); AST,SGOT 28 U/L (15-37); BILIRUBIN,TOTAL 0.4 mg/dL (0.0-1.0); BLOOD UREA NITROGEN 17 mg/dL (7-17); CALCIUM 8.8 mg/dL (8.4-10.2); CARBON DIOXIDE 22 mmol/L (22-30); CHLORIDE 106 mmol/L (98-107); CREATININE, serum 0.89 (0.52-1.25); GLUCOSE 104 mg/dL (74-106); POTASSIUM 4.2 mmol/L (3.4-5.0); SODIUM 140 mmol/L (137-145); TOTAL PROTEIN 5.9 gm/dL (6.4-8.2)
[2020-07-22 21:11] LABS: SALICYLATE < 1.0 mg/dL
[2020-07-22 21:20] LABS: TROPONIN-I < 0.012 ng/mL (0.000-0.035)
[2020-07-22 22:41] VITALS: BP 109/70; PULSE 68
== END 2020-07-22 22:40 | disposition home or self-care (01) ==
LOC: COL.ER 20:03
PROVIDERS: Emergency Medicine Emergency Medical Services
DX: I21.4 Non-ST elevation (NSTEMI) myocardial infarction (principal); R44.1 Visual hallucinations; I11.0 Hypertensive heart disease with heart failure; I25.2 Old myocardial infarction; Z79.82 Long term (current) use of aspirin; Z79.01 Long term (current) use of anticoagulants; Z79.52 Long term (current) use of systemic steroids

== ENCOUNTER 2020-07-24 22:11 | Inpatient (IN) | payer MEDICARE, MEDICAID ==
[~2020-07-24] VITALS: Ht 165.1 cm; Wt 56.4 kg
[2020-07-24 23:09] LABS: BASO # 0.1 (0.0-0.2); BASO % 0.5 % (0.0-2.0); EOS % 0.4 % (0-4.0); GRAN # 7.1 (1.4-6.5); GRAN % 64.3 % (42.2-75.2); HEMATOCRIT 37.8 % (37.0-47.0); HEMOGLOBIN 11.3 g/dl (12.5-16.0); LYMPH # 2.8 (1.2-3.4); LYMPH % 25.5 % (20.0-51.0); MEAN CELL VOLUME 79 fl (80.0-100.0); MEAN CORPUSCULAR HEMOGLOBIN 24 pg (27.0-31.0); MEAN CORPUSCULAR HGB CONC 30 g/dl (33.0-37.0); MEAN PLATELET VOLUME 10.4 fl (7.4-10.4); MONO % 8.8 % (1.7-9.3); PLATELET COUNT 324 K/mm3 (130-400); RED BLOOD COUNT 4.77 M/mm3 (4.10-5.30); REDCELL DISTRIBUTION WIDTH-CV 18.9 % (11.5-14.5)
[2020-07-24 23:21] LABS: ALANINE AMINOTRANSFERASE 23 U/L (4-34); ALBUMIN 3.7 gm/dL (3.5-5.0); ALKALINE PHOSPHATASE 77 U/L (50-136); ANION GAP 10 mmol/L (7-16); AST,SGOT 29 U/L (15-37); BILIRUBIN,TOTAL 0.4 mg/dL (0.0-1.0); BLOOD UREA NITROGEN 18 mg/dL (7-17); CALCIUM 9.2 mg/dL (8.4-10.2); CARBON DIOXIDE 24 mmol/L (22-30); CHLORIDE 108 mmol/L (98-107); GLUCOSE 76 mg/dL (74-106); POTASSIUM 3.5 mmol/L (3.4-5.0); SODIUM 141 mmol/L (137-145); TOTAL PROTEIN 5.9 gm/dL (6.4-8.2)
[2020-07-24 23:22] LABS: ACETAMINOPHEN < 10 ug/mL (10-30); ALCOHOL(ethanol),MEDICAL < 10 mg/dL; SALICYLATE < 1.0 mg/dL
[2020-07-24 23:26] LABS: COLLECTION METHOD CLEAN CATCH
[2020-07-24 23:41] LABS: MUCOUS Present /lpf; PH 5 (5-8); SQUAMOUS EPITHELIAL 0-2 /hpf; TRICYCLIC ANTIDEPRESS URINE NEGATIVE; URINE APPEARANCE Cloudy; URINE BACTERIA None Seen /hpf; URINE BILIRUBIN Negative (NEGATIVE); URINE BLOOD Negative (NEGATIVE); URINE COLOR Yellow; URINE GLUCOSE Negative (NEGATIVE); URINE KETONE Negative (NEGATIVE); URINE LEUKOCYTE ESTERASE 2+ (NEGATIVE); URINE NITRATE Positive (NEGATIVE); URINE PROTEIN(semi-quant) 1+ (NEGATIVE); URINE UROBILINOGEN Negative (NEGATIVE); URINE WBC >50 /hpf
[2020-07-25] VITALS (9 sets, daily range): BP systolic 70–120; BP diastolic 49–75; PULSE 82–98; TEMP 97.3–98.7
--- NOTE | 2020-07-25 02:30 | NUR ---
Received patient from ED. She is alert and oriented. She is on room air. With IV on left AC, started with NS at 75ml/hr. Walker at bedside. She do have visual hallucinations. She states that she feels as well that there are snakes under the blanket right now. On high fall risk. Instructed patient to call if she needs to go to the bathroom. Bed alarm on. Call light within reach.
--- NOTE | 2020-07-25 07:00 | NUR ---
PT IS ASLEEP AT THIS TIME. PT CARES WILL BE ASSISTED BY STUDENT NURSE, SANDRA.
--- NOTE | 2020-07-25 11:47 | NUR ---
PT WAS VERY DIZZY DURING OCCUPATIONAL THERAPY, THIS RN DECIDED TO DO ORTHOSTATIC BP WITH PT. INITIAL SUPINE BP WAS 106/71 THEN SITTING BP WAS 70/49. PT DID STATE THAT "I AM DIZZY, BUT THIS IS NORMAL". THIS RN DID NOTIFY PROVIDER STUDENT PAUL LAZARO WHO STATES HE WILL DISCUSS WITH PROVIDER. PHARMACIST WAS A PART OF ROUNDING, AND THIS RN DID DISCUSS CONCURRENT USE OF BP MEDICATIONS THAT COULD POTENTIATE THE SYNCOPE AND DIZZINESS. NO OTHER CONCERNS AT THIS TIME. WILL CONTINUE TO MONITOR PATIENT. CALL LIGHT IS WITHIN REACH, AND BED ALARM IS ON.
--- NOTE | 2020-07-25 12:11 | NUR ---
First visit from the tanker driver. No needs right now.
--- NOTE | 2020-07-25 14:16 | NUR ---
JULIA attended clinical rounds. The patient has been having visual hallucinations. She states that she has still been seeing snakes today. A psych consult was ordered. SW contacted the patient's daughter, Aneta Byrne (ph#[phone]), to complete intake. The patient lives alone in [place]. Aneta reports that she lives five minutes away from the patient and checks in on her. Aneta reports that the patient has been independent with ADLs and has a walker and wheelchair. She is not receiving any home health at this time. She used to have [facility] in the past. The patient's PCP is Dr. Bhumika Kurtz and she receives her medications from [facility] in [facility]. Aneta reports no difficulties obtaining her meds. The patient does not have a DPOA-HC completed. Aneta reports that the patient is from her , but that they are not legally . She has two living children: Aneta and Dami. JULIA informed Aneta that the patient's legal next of kin and decision maker would be her , since they are not legally . Aneta verbalized understanding. PT/OT have also worked with the patient and recommend post-acute rehab. SW discussed this with Aneta. Aneta is agreeable to rehab and for SW to send referrals to the facilities in [place]. JULIA followed up with possum trapper, Bernice, with Dr. Kurtz. Bernice reports that they have not worked on any inpatient psych treatment for the patient. She states that the patient has a history of being non-compliant and not following up. Bernice requests that we keep them updated on d/c plan. *Discharge plan: Awaiting psych recommendation vs post-acute rehab*
--- NOTE | 2020-07-25 14:44 | NUR ---
Patient has been very pleasant today. After visiting w/ the hospitalist this morning at approx. 1000, patient admitted that while the hospitalist was in her room that bugs began crawling acorss the foot of the bed but were no longer present when the doctor left the room. Patient has not experienced any hallucinations since then. Patient did complain of a headache and PRN tylenol was given.
--- NOTE | 2020-07-25 16:35 | NUR ---
Pt. A/O x1, c/o pain to left iliac region, rates pain 4/10, denies medication. Pt. states "I have been seeing someone sitting there on that chair", nurse confirms there is no person at chair and reoriented pt. Will continue to closely monitor. Call light within reach. Nurse reiterated to pt. to please call to transfer.
--- NOTE | 2020-07-25 19:11 | NUR ---
Pt. sitting in bed Alert but not oriented. Pt. asked nurse to transfer to use bathroom, ambulated well and free of complains of dizziness. Pt. displayed mild SOB when she returned to bed. Nurse informed pt. to sit up in bed, pt SOB subsided. IV fluids infusing, N/S at 75ml/hr left a/c. Patient expresses no additional needs at this time. Call light within reach.
--- NOTE | 2020-07-25 22:27 | NUR ---
Patient laying in bed upon enter the room. Patient pleasant, alert and oriented to self and date. Patient denies SOB/dyspnea, N/V, headache, dizziness, or dairrhea. Patient reports moderate pain to left lower back area. PRN Tylenol given for pain. All scheduled meds given per JUN. Call light within reach. Bed-alarms on. Patient denies any needs at this time.
[2020-07-26 00:12] VITALS: BP 115/75; PULSE 97; TEMP 98.5
[2020-07-26 03:43] VITALS: BP 110/68; PULSE 84; TEMP 98.3
--- NOTE | 2020-07-26 05:27 | NUR ---
Patient reports that she had visual hallucinations around midnight. Patient reports that she saw a black cat running across her room for a few seconds. Call light within reach. Bed alarms on.
--- NOTE | 2020-07-26 07:05 | NUR ---
PT IN BED AT THIS TIME. HAS NO COMPLAINTS. ASSESSMENT COMPLETED. PT IS ALERT AND ORIENTED, BUT HAS HAD HALLUCINATIONS THROUGH THE NIGHT OF A BLACK CAT RUNNING ACROSS THE FLOOR. THERE ARE NO FURTHER CONCERNS, PT IS HAPPY AND CONTENT THIS MORNING.
[2020-07-26 08:00] VITALS: BP 124/82; PULSE 89; TEMP 98
[2020-07-26 08:27] LABS: MEAN CELL VOLUME 82 fl (80.0-100.0); MEAN CORPUSCULAR HGB CONC 29 g/dl (33.0-37.0); MEAN PLATELET VOLUME 10.7 fl (7.4-10.4); PLATELET COUNT 255 K/mm3 (130-400); RED BLOOD COUNT 4.12 M/mm3 (4.10-5.30); REDCELL DISTRIBUTION WIDTH-CV 18.9 % (11.5-14.5)
[2020-07-26 08:30] LABS: HEMATOCRIT 33.8 % (37.0-47.0); HEMOGLOBIN 9.9 g/dl (12.5-16.0); MEAN CORPUSCULAR HEMOGLOBIN 24 pg (27.0-31.0)
[2020-07-26 08:40] LABS: CALCIUM 8.1 mg/dL (8.4-10.2); CREATININE, serum 0.67 (0.52-1.25); POTASSIUM 3.7 mmol/L (3.4-5.0)
--- NOTE | 2020-07-26 10:41 | NUR ---
Psych is recommending follow up with her PCP. JULIA contacted and faxed referrals to [facility], [facility], and [facility]. Awaiting screens.
[2020-07-26 12:11] VITALS: BP 123/78; PULSE 89
--- NOTE | 2020-07-26 12:39 | NUR ---
Araceli, at [facility], reports that they have declined the patient.
[2020-07-26 17:13] VITALS: BP 144/113; PULSE 95; TEMP 97.5
--- NOTE | 2020-07-26 19:46 | NUR ---
PT HAD UNEVENTFUL DAY. PT'S LAC IV DID BEGIN TO LEAK, AND A NEW IV WAS PLACED IN THE L UPPER ARM. PT IS STILL HALLUCINATING AND SEEING SOME BUGS RUNNING ACROSS THE FLOOR IN HER ROOM. PLEASANT PATIENT. NO OTHER CONCERNS. REPORT GIVEN TO LOVE PEREZ.
[2020-07-26 19:58] VITALS: BP 129/78; PULSE 94; TEMP 97.8
--- NOTE | 2020-07-26 20:00 | NUR ---
Assessment complete. Patient is alert and oriented. She states she still sees "a little furry thing" that disappears as soon as she goes to look at it. She has no complaints of pain or any new concerns. IV fluids into left upper arm IV. No edema is noted. Call light in reach, will continue to monitor.
[2020-07-27] VITALS (9 sets, daily range): BP systolic 105–143; BP diastolic 66–84; PULSE 83–104; TEMP 97.6–98.4
--- NOTE | 2020-07-27 06:54 | NUR ---
PT IS LAYING IN BED. DENIES ANY PAIN, OR NEEDS AT THIS TIME. STUDENT NURSE, SANDRA WILL BE ASSISTING WITH CARES FOR THIS PATIENT TODAY. REPORT RCVD FROM CHRIS ALEMAN.
--- NOTE | 2020-07-27 10:29 | NUR ---
Patient has been doing well this morning. Provider rounds have been done and it has been decided to do an updated brain MRI. Patient has been made NPO so that the MRI can be completed today. All medications had been administered prioir to patient being made NPO. Patient has been sitting in the recliner, relaxing and looking at her phone.
--- NOTE | 2020-07-27 11:52 | NUR ---
Silverio, at [facility], reports that they have declined the patient.
--- NOTE | 2020-07-27 16:12 | NUR ---
Arron, at [facility], reports that they have declined the patient. JULIA contacted the patient's daughter, Aneta, to update. Aneta reports that when the patient was in the ED, [facility] was trying to get the patient into inpatient psych and thought they had found something in [place]. Aneta is agreeable to inpatient geripsych. JULIA contacted [facility]. The investment banking manager reports they had not found placement for the patient. They could come and screen the patient though, once medically cleared. The investment banking manager reports that she can email a list of inpatient geripsych's to JULIA. JULIA provided her with JULIA's email. JULIA contacted and faxed a [facility] to [facility], [facility] in [place], and [facility] in [place]. Awaiting screens. JULIA updated the hospitalist. The hospitalist reports that she has consulted neurology. JULIA met with the patient to discuss a DPOA-HC. The patient verbalized what a DPOA-HC is, but states that she does not want to complete one. JULIA informed her how her legal next of kin is still her , since they are not legally yet. The patient verbalized understanding. The patient states that she will take a DPOA-HC form and will think about it. She states that she will talk to her children, but is not interested in completing one at this time.
--- NOTE | 2020-07-27 20:00 | NUR ---
Patient assessed at this time. Alert and oriented, and able to make needs known. Reported level 5 headache. Given PRN APAP as requested. Peripheral INT to left uppper extremity. Denies SOB and dyspnea. LS CTA. Respirations even and unlabored. HRR. Capillary refill less than 3 seconds. Non-tenting skin turgor. BSAx4. Abdomen soft and non-tender. No edema. Voices no questions, needs, or concerns at this time. Resting in bed with call light within reach.
[2020-07-28] VITALS (7 sets, daily range): BP systolic 103–132; BP diastolic 61–82; PULSE 82–104; TEMP 97.8–99.2
--- NOTE | 2020-07-28 06:09 | NUR ---
Patient has been resting in bed with call light within reach. Has denied having pain and discomfort since receiving PRN APAP at bedtime. Voices no questions, needs, or concerns at this time. High fall risk precautions remain in place.
[2020-07-28 06:38] LABS: CALCIUM 8.7 mg/dL (8.4-10.2); CREATININE, serum 0.63 (0.52-1.25); POTASSIUM 3.4 mmol/L (3.4-5.0)
[2020-07-28 06:48] LABS: BASO % 0.3 % (0.0-2.0); EOS # 0.1 (0.0-0.7); EOS % 0.8 % (0-4.0); GRAN # 4.8 (1.4-6.5); GRAN % 62.8 % (42.2-75.2); LYMPH # 2.1 (1.2-3.4); LYMPH % 27.2 % (20.0-51.0); MEAN CELL VOLUME 83 fl (80.0-100.0); MEAN CORPUSCULAR HGB CONC 29 g/dl (33.0-37.0); MEAN PLATELET VOLUME 11.1 fl (7.4-10.4); MONO # 0.6 (0.1-0.6); MONO % 8.4 % (1.7-9.3); PLATELET COUNT 265 K/mm3 (130-400); RED BLOOD COUNT 3.97 M/mm3 (4.10-5.30); REDCELL DISTRIBUTION WIDTH-CV 18.9 % (11.5-14.5)
[2020-07-28 06:54] LABS: HEMATOCRIT 32.8 % (37.0-47.0); HEMOGLOBIN 9.6 g/dl (12.5-16.0); MEAN CORPUSCULAR HEMOGLOBIN 24 pg (27.0-31.0)
--- NOTE | 2020-07-28 09:39 | NUR ---
PT PLEASANT, AOX4, REPORTED SEEING BUGS ON BED THIS AM, PT TOOK MEDICATIONS WITH WATER, POTASSIUM REPLACEMENT GIVEN, CALL LIGHT IN CHAIR WITH PT, PT DENIES DIZZINESS GETTING FROM BED TO CHAIR, PT REPORTS FEELING TIRED AFTER SHE EATS, ASSESSMENT PERFORMED, PT DENIES PAIN, DISCOLORED BLE, GOOD PULSES, NO OTHER NEEDS AT THIS TIME.
--- NOTE | 2020-07-28 16:05 | NUR ---
SW re-faxed, [facility], and [facility] for reeval on patient for stay. Submitted updated PPW on patients care. Awaiting response.
--- NOTE | 2020-07-28 17:33 | NUR ---
pt pleasant, aox4, reported hallucination of bugs on bed in am but none since then. pt denies pain during shift, uneventful shift overall, pt had shower, no other needs at this time.
--- NOTE | 2020-07-28 19:37 | NUR ---
awake, alert, oriented x 4, sitting up in bed, eating snack, VS stable, denies hallucinations, deneis pain.
[2020-07-29] VITALS (7 sets, daily range): BP systolic 92–125; BP diastolic 55–76; PULSE 86–102; TEMP 97.5–98.4
--- NOTE | 2020-07-29 06:25 | NUR ---
Awake most of the night, states " I worked until 3 am almost all of my life", neuro checks q 6 hours, no hallucinations, denies pain this am, VS stable.
[2020-07-29 07:14] LABS: MEAN CELL VOLUME 81 fl (80.0-100.0); MEAN CORPUSCULAR HGB CONC 30 g/dl (33.0-37.0); MEAN PLATELET VOLUME 11.1 fl (7.4-10.4); PLATELET COUNT 269 K/mm3 (130-400); RED BLOOD COUNT 3.77 M/mm3 (4.10-5.30); REDCELL DISTRIBUTION WIDTH-CV 19.1 % (11.5-14.5)
[2020-07-29 07:24] LABS: CALCIUM 8.9 mg/dL (8.4-10.2); CREATININE, serum 0.68 (0.52-1.25); POTASSIUM 3.4 mmol/L (3.4-5.0)
[2020-07-29 07:29] LABS: HEMATOCRIT 30.4 % (37.0-47.0); HEMOGLOBIN 9.1 g/dl (12.5-16.0); MEAN CORPUSCULAR HEMOGLOBIN 24 pg (27.0-31.0)
--- NOTE | 2020-07-29 09:47 | NUR ---
On the morning assessment patient was laying in bed, she complained of a headache rating on a numerical scale of 6-7. Tylenol was given. Patient is now sitting in her recliner reading.
--- NOTE | 2020-07-29 18:06 | NUR ---
PT AOX4, PT PLEASANT, UNEVENTFUL SHIFT OVERALL, AWAITING PLACEMENT, CALL LIGHT WITHIN REACH, NO OTHER NEEDS AT THIS TIME.
--- NOTE | 2020-07-29 19:11 | NUR ---
Awake, alert, oriented x 3, verbal with clear speech, denies pain, uses call hastings appropriately, x1 with walker assist for ambulation, updated on plan of care, no issues at this time
[2020-07-30 04:05] VITALS: BP 112/70; PULSE 85; TEMP 97.9
--- NOTE | 2020-07-30 06:01 | NUR ---
Resting quietly, no c/o at this time, denies pain, respirations even and unlabored, call hastings w/i reach
[2020-07-30 07:37] VITALS: BP 101/73; PULSE 88; TEMP 98.2
[2020-07-30 07:39] VITALS: BP 111/70; PULSE 86; TEMP 98.1
--- NOTE | 2020-07-30 07:43 | NUR ---
Patient was pleasant this morning during my assessment, and is laying in bed. She said that she has not had any more hallucinations since the last report. Patient complained of a headache rating an 8 on a numeric pain scale, a dose of Tylenol will be given.
[2020-07-30 07:45] LABS: BASO % 0.5 % (0.0-2.0); EOS # 0.1 (0.0-0.7); EOS % 1.5 % (0-4.0); GRAN # 4.2 (1.4-6.5); GRAN % 53.2 % (42.2-75.2); LYMPH # 2.8 (1.2-3.4); LYMPH % 34.8 % (20.0-51.0); MEAN CELL VOLUME 81 fl (80.0-100.0); MEAN CORPUSCULAR HGB CONC 30 g/dl (33.0-37.0); MEAN PLATELET VOLUME 10.6 fl (7.4-10.4); MONO # 0.8 (0.1-0.6); MONO % 9.6 % (1.7-9.3); PLATELET COUNT 277 K/mm3 (130-400)
[2020-07-30 07:48] LABS: HEMATOCRIT 30.7 % (37.0-47.0); HEMOGLOBIN 9.2 g/dl (12.5-16.0); MEAN CORPUSCULAR HEMOGLOBIN 24 pg (27.0-31.0)
[2020-07-30 08:04] LABS: ALBUMIN 2.7 gm/dL (3.5-5.0); BILIRUBIN,TOTAL 0.3 mg/dL (0.0-1.0); CALCIUM 8.3 mg/dL (8.4-10.2); CREATININE, serum 0.71 (0.52-1.25); POTASSIUM 3.6 mmol/L (3.4-5.0); TOTAL PROTEIN 4.4 gm/dL (6.4-8.2)
--- NOTE | 2020-07-30 08:56 | NUR ---
SW contacted Ann Marie at [facility] and gave her a referral.
--- NOTE | 2020-07-30 09:25 | NUR ---
Haylee Marquis and Tyl[facility] report that they are still declining the patient.
[2020-07-30] MEDS ORDERED: RISPERDAL 0.5M0.5 MG PO (10:41)
[2020-07-30] MEDS ORDERED: FLORINEF ACETA0.1 MG PO (10:42)
[2020-07-30 10:51] VITALS: BP 111/70; PULSE 86; TEMP 98.1
--- NOTE | 2020-07-30 11:31 | NUR ---
WU care supervised by this instructor, agree with documentation.
--- NOTE | 2020-07-30 11:35 | NUR ---
CALLED REPORT TO GET AT [facility].
--- NOTE | 2020-07-30 11:40 | NUR ---
PT TEARFUL IN ROOM, DOES NOT WANT TO GO TO [facility] BED, PT WANTS TO BE WITH HER SON FOR HIS SURGERY.
--- NOTE | 2020-07-30 11:49 | NUR ---
Ann Marie, at [facility], reports that they are able to accept the patient today. The accepting provider is ELOY Glasgow. #[phone]. JULIA notified and provided the phone number to the patient's PA. SW updated the patient. She is agreeable to going to [facility]. JULIA contacted and updated her daughter, Aneta. Aneta is agreeable to the plan and states that she can picker feeder the patient at 1430 and transport her to [facility]. JULIA notified the patient's RN and Ann Marie at [facility] of the transport time. SW also read the IM form outloud to Aneta over the phone. Aneta verbalized understanding and gave JULIA approval to sign the form on her behalf. JULIA then met with the patient to update her on the transport time. The patient became tearful and states that she does not want to go to [facility] anymore. She states that her son is going through some health issues too and he needs someone. JULIA provided support and informed her of her clinical teams recommendation for post-acute rehab. The patient stated, "fine, I will go." The patient is to discharge today, 07/30, to [facility]. Transportation is to be by private vehicle at 1430, via the patient's daughter. No additional needs at this time.
[2020-07-30 12:05] VITALS: BP 93/69; PULSE 103; TEMP 98.5
--- NOTE | 2020-07-30 14:40 | NUR ---
pt escorted out via wheelchair with pt belongings. no other needs.
--- NOTE | 2020-07-30 14:48 | NUR ---
Initial visit; Patient thanked Licensed Practical Nurse Instructor for looking in on her and offering empathy and prayer. Patient seemed to need to vent and then became a little calmer.
== END 2020-07-30 14:30 | disposition swing bed (61) | DRG 871 ==
LOC: COL.ER 22:11 → MEDICAL 07-25 01:08
PROVIDERS: Family Medicine; Nurse Practitioner Primary Care; ADMIT Internal Medicine
DX: A41.9 Sepsis, unspecified organism (principal); G93.41 Metabolic encephalopathy; I21.4 Non-ST elevation (NSTEMI) myocardial infarction; N39.0 Urinary tract infection, site not specified; I50.32 Chronic diastolic (congestive) heart failure; I95.1 Orthostatic hypotension; M89.9 Disorder of bone, unspecified; I25.10 Atherosclerotic heart disease of native coronary artery without angina pectoris; M32.9 Systemic lupus erythematosus, unspecified; R10.9 Unspecified abdominal pain; R44.1 Visual hallucinations; F29 Unspecified psychosis not due to a substance or known physiological condition; D86.9 Sarcoidosis, unspecified; K57.90 Diverticulosis of intestine, part unspecified, without perforation or abscess without bleeding; G90.9 Disorder of the autonomic nervous system, unspecified; F31.9 Bipolar disorder, unspecified; F43.10 Post-traumatic stress disorder, unspecified; D50.9 Iron deficiency anemia, unspecified; I25.2 Old myocardial infarction; I11.0 Hypertensive heart disease with heart failure; M48.50XD Collapsed vertebra, not elsewhere classified, site unspecified, subsequent encounter for fracture with routine healing; E03.9 Hypothyroidism, unspecified; Z86.711 Personal history of pulmonary embolism; Z79.01 Long term (current) use of anticoagulants; Z90.710 Acquired absence of both cervix and uterus; Z85.42 Personal history of malignant neoplasm of other parts of uterus; Z79.82 Long term (current) use of aspirin; Z79.52 Long term (current) use of systemic steroids
CPT/HCPCS: 99223-AI; 99231-AI; 99232-AI; 99233-AI; 99239; A9585; J0696; J7030; J7512

== ENCOUNTER → 2020-10-05 | Outpatient (CLI) | payer MEDICARE, MEDICAID ==
[~2020-10-05] MED LIST changes: +FLORINEF ACETA0.1 MG PO; +RISPERDAL 0.5M0.5 MG PO
== END ==
LOC: COL.VAS 12:47
DX: I82.401 Acute embolism and thrombosis of unspecified deep veins of right lower extremity (principal)

== ENCOUNTER → 2021-01-28 | Outpatient (CLI) | payer MEDICARE, MEDICAID | LOC: COL.RAD 01-21 10:30 | DX: K44.9 Diaphragmatic hernia without obstruction or gangrene (principal); K22.89 Other specified disease of esophagus ==

== ENCOUNTER 2021-03-27 07:29 | Day surgery (SDC) | payer MEDICARE, MEDICAID ==
[~2021-03-27] VITALS: Ht 165.1 cm; Wt 56.0 kg
[2021-03-27] VITALS (10 sets, daily range): BP systolic 95–120; BP diastolic 60–80; PULSE 71–103; TEMP 97.5–98.5
[2021-03-27] MEDS ORDERED: VITAMIN B12 1541 TAB PO (09:14)
[2021-03-27] MEDS ORDERED: PLAQUENIL 200M200 MG PO (09:15)
[2021-03-27] MEDS ORDERED: FERROUS SU325 MG/TAB PO (09:15)
[2021-03-27] MEDS ORDERED: TOPROL XL 25MG25 MG PO (09:17)
[2021-03-27] MEDS ORDERED: PREDNISONE10 MG PO (09:19)
[2021-03-27] MEDS ORDERED: PROBIOTIC-MAJOR PO (09:21)
[2021-03-27] MEDS ORDERED: EFFEXOR XR37.5 MG/CA PO (09:22)
[2021-03-27] MEDS ORDERED: ATHLETE'S FOOT1% TP (09:24)
[2021-03-27] MEDS ORDERED: PHENERGAN 25 TA25 MG PO (09:25)
[2021-03-27] MEDS ORDERED: LASIX 20MG TABL20 MG PO (09:25)
[2021-03-27] MEDS ORDERED: LOVENOX 8080 MG/0.8 SQ (09:30)
[2021-03-27 10:01] LABS: BASO # 0.1 K/mm3 (0.0-0.2); BASO % 0.5 % (0.0-2.0); EOS % 0.2 % (0.0-4.0); GRAN % 80.1 % (42.2-75.2); LYMPH # 1.2 K/mm3 (1.2-3.4); MEAN CELL VOLUME 74 fl (80.0-100.0); MEAN CORPUSCULAR HEMOGLOBIN 23 pg (27-31); MEAN CORPUSCULAR HGB CONC 30 g/dl (33.0-37.0); MEAN PLATELET VOLUME 10.6 fl (7.4-10.4); MONO # 0.6 K/mm3 (0.1-0.6); MONO % 6.4 % (1.7-9.3); PLATELET COUNT 248 K/mm3 (130-400); RED BLOOD COUNT 4.88 M/mm3 (4.10-5.30); REDCELL DISTRIBUTION WIDTH-CV 22.6 % (11.5-14.5)
[2021-03-27 10:03] LABS: HEMATOCRIT 36.2 % (37.0-47.0)
[2021-03-27 10:08] LABS: INR 1.2 (0.8-3.0); PROTHROMBIN TIME 13.1 SECONDS (9.7-12.8)
[2021-03-27 10:20] LABS: ALBUMIN 3.2 gm/dL (3.4-4.8); BILIRUBIN,TOTAL 0.5 mg/dL (0.2-1.2); CALCIUM 8.7 mg/dL (8.4-10.2); CREATININE, serum 0.85 mg/dL (0.57-1.11); POTASSIUM 3.4 mmol/L (3.5-4.5); TOTAL PROTEIN 4.9 gm/dL (6.2-8.1)
--- NOTE | 2021-03-27 14:00 | NUR ---
Attempted to do med rec. Pt reported that she gave a list to the admitting nurse down stairs, no med list on chart and nurse was not sure where it went. Called [facility] [employer] for a med list to be faxed.
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
--- NOTE | 2021-03-27 17:00 | NUR ---
Med list sent over. Attempted to complete med rec but over the counter medication are not on list. Pt is not sure what she takes. Will attempt to call daughter
--- NOTE | 2021-03-27 18:34 | NUR ---
When pt was moved back to her room, she did have increase complaints of pain. PRN pain medication given. 30-45 minutes later she did report feeling better. Pt did tolerated clear liquids with no complaints of nausea. Discussed plan of care with pt and went over pain medications with her. Lap sites all well approximated with no drainage or redness noted.
--- NOTE | 2021-03-27 19:00 | NUR ---
RECEIVED CHANGE OF SHIFT REPORT FROM DAY SHIFT RN.
[2021-03-28 03:28] VITALS: BP 114/73; PULSE 63; TEMP 98
--- NOTE | 2021-03-28 07:16 | NUR ---
CHANGE OF SHIFT REPORT GIVEN TO DAY SHIFT RNGAURAV.
[2021-03-28 07:52] VITALS: BP 113/66; PULSE 84; TEMP 97.6
--- NOTE | 2021-03-28 09:39 | NUR ---
Initial visit; Patient thanked Plaster Caster for offering prayer for her and for her son by request. Patient thanked Plaster Caster for wishing her well and God's blessings.
--- NOTE | 2021-03-28 10:48 | NUR ---
Patient alert and oriented, answers questions appropriately. See assessment. Abdomen soft, tender, non distended. Bowel sounds active x4 quads. +Flatus. +Bowel movement. Lap sites to abdomen with edges well approximated, no redness or drainage noted. Urinating adequate amounts. Post op exercises reviewed. Up in chair at this time.
[2021-03-28 12:45] VITALS: BP 97/62; PULSE 81; TEMP 97.8
--- NOTE | 2021-03-28 14:13 | NUR ---
Processing Lead met with patient to discuss discharge planning. Patient lives alone in [place] and sees Dr. Kurtz for primary care. Patient obtains medications from [facility] with no difficulties. Patient has a rollator, tub transfer bench, and stool riser at home. Patient reports she is normally independent with ADLS and plans to return home upon discharge. Patient advised she does not have Advance Directives but has two children: Aneta (ph#[phone]) and Dami. Patient requested blank [facility]- to go over with her children. SW provided. SW contacted patient's daughter, Aneta and left a message. Discharge Plan: Home
[2021-03-28 16:00] VITALS: BP 109/86; PULSE 95; TEMP 97.7
[2021-03-28 19:20] VITALS: BP 110/67; PULSE 96; TEMP 97.3
--- NOTE | 2021-03-28 20:25 | NUR ---
Pt. sitting up in bed. Pt. is A&OX3, assessment complete. INT to lt. wrist patent. Pt. reports abd. pain at a 5 on pain scale, gave Tylenol per request. ABd. lap sites CDI. Pt. denies further needs, call light within reach.
[2021-03-28 23:26] VITALS: BP 106/65; PULSE 96; TEMP 98
[2021-03-29 04:17] VITALS: BP 109/70; PULSE 63; TEMP 98
[2021-03-29 07:41] VITALS: BP 118/83; PULSE 104; TEMP 98
--- NOTE | 2021-03-29 09:45 | NUR ---
Patient alert and oriented, answers questions appropriately. See assessment. Abdomen soft, tender, non distended. Bowel sounds active x4 quads. +Flatus. +Bowel movement. Lap sites to abdomen with edges well approximated, no redness or drainage noted. Tolerating soft diet well. Has been sitting up in chair most of the morning. Uses walker for independent ambulation. Post op exercises reviewed. No c/o at this time.
--- NOTE | 2021-03-29 10:29 | NUR ---
Follow-up visit; Patient thanked for looking in on her again this morning and wishing her well and Mariluz Amato before she is discharged.
--- NOTE | 2021-03-29 11:09 | NUR ---
Discharge instructions reviewed with patient, verbalizes understanding. Discharged via wheelchair to auto/home with spouse at 1030.
[2021-04-01] MEDS ORDERED: NORCO 325 MG-51 TAB PO (14:47)
== END 2021-03-29 10:30 | disposition home or self-care (01) ==
LOC: SDCO 07:29 → SURG 13:25 → SDCO 03-29 10:30
PROVIDERS: Surgery
DX: K44.9 Diaphragmatic hernia without obstruction or gangrene (principal); K21.9 Gastro-esophageal reflux disease without esophagitis; I48.91 Unspecified atrial fibrillation; I11.0 Hypertensive heart disease with heart failure; I50.9 Heart failure, unspecified; I25.10 Atherosclerotic heart disease of native coronary artery without angina pectoris; I08.0 Rheumatic disorders of both mitral and aortic valves; E03.9 Hypothyroidism, unspecified; D64.9 Anemia, unspecified; E78.5 Hyperlipidemia, unspecified; G20 Parkinson's disease; F41.9 Anxiety disorder, unspecified; F32.A Depression, unspecified; F43.10 Post-traumatic stress disorder, unspecified; M35.89 Other specified systemic involvement of connective tissue; D86.9 Sarcoidosis, unspecified; M19.90 Unspecified osteoarthritis, unspecified site; Z86.718 Personal history of other venous thrombosis and embolism; Z79.01 Long term (current) use of anticoagulants; Z85.828 Personal history of other malignant neoplasm of skin; Z79.52 Long term (current) use of systemic steroids; Z79.899 Other long term (current) drug therapy; Z79.890 Hormone replacement therapy; Z86.711 Personal history of pulmonary embolism; Z85.42 Personal history of malignant neoplasm of other parts of uterus; Z79.82 Long term (current) use of aspirin
CPT/HCPCS: OP; J0690; J2405; J2704; J3010; J7050; J7120; J7512

== ENCOUNTER 2021-09-27 15:16 | Emergency (ER) | payer MEDICARE, MEDICAID ==
[~2021-09-27] VITALS: Ht 165.1 cm; Wt 55.9 kg
[~2021-09-27 15:16] MED LIST changes: +ATHLETE'S FOOT1% TP; +EFFEXOR XR37.5 MG/CA PO; +FERROUS SU325 MG/TAB PO; +LOVENOX 8080 MG/0.8 SQ; +NORCO 325 MG-51 TAB PO; +PROBIOTIC-MAJOR PO; +VITAMIN B12 1541 TAB PO
[2021-09-27 16:10] LABS: BASO % 0.6 % (0.0-2.0); GRAN # 5.4 K/mm3 (1.4-6.5); GRAN % 84.5 % (42.2-75.2); HEMATOCRIT 40.2 % (37.0-47.0); HEMOGLOBIN 13.2 g/dl (12.5-16.0); LYMPH # 0.5 K/mm3 (1.2-3.4); LYMPH % 7.8 % (20.0-51.0); MEAN CELL VOLUME 92 fl (80.0-100.0); MEAN CORPUSCULAR HEMOGLOBIN 30 pg (27-31); MEAN CORPUSCULAR HGB CONC 33 g/dl (33.0-37.0); MEAN PLATELET VOLUME 10.3 fl (7.4-10.4); MONO # 0.4 K/mm3 (0.1-0.6); MONO % 6.5 % (1.7-9.3); PLATELET COUNT 243 K/mm3 (130-400); RED BLOOD COUNT 4.35 M/mm3 (4.10-5.30); REDCELL DISTRIBUTION WIDTH-CV 15.6 % (11.5-14.5)
[2021-09-27 16:33] LABS: ALANINE AMINOTRANSFERASE 14 U/L (0-55); ALBUMIN 3.3 gm/dL (3.4-4.8); ALKALINE PHOSPHATASE 105 U/L (40-150); ANION GAP 14 mmol/L (7-16); AST,SGOT 22 U/L (5-34); BILIRUBIN,TOTAL 0.8 mg/dL (0.2-1.2); BLOOD UREA NITROGEN 16 mg/dL (10-20); CALCIUM 8.7 mg/dL (8.4-10.2); CARBON DIOXIDE 21 mmol/L (23-31); CHLORIDE 104 mmol/L (98-107); CREATININE, serum 1.11 mg/dL (0.57-1.11); GLUCOSE 103 mg/dL (70-99); POTASSIUM 4.6 mmol/L (3.5-4.5); SODIUM 139 mmol/L (136-145); TOTAL PROTEIN 5.8 gm/dL (6.2-8.1)
[2021-09-27 16:34] LABS: ACETAMINOPHEN < 1.0 ug/mL (10-30); ALCOHOL(ethanol),MEDICAL < 10 mg/dL (0-10); SALICYLATE < 5.0 mg/dL (15.0-30.0)
[2021-09-27 16:45] LABS: COLLECTION METHOD CLEAN CATCH
[2021-09-27 16:53] LABS: TSH w REFLEX 3.946 uIU/mL (0.350-4.940)
[2021-09-27 17:05] LABS: MUCOUS Present (NOT PRESENT); PH 6 (5-8); SQUAMOUS EPITHELIAL None Seen /hpf (0-10); URINE APPEARANCE Clear (CLEAR/HAZY); URINE BACTERIA None Seen /hpf (NONE SEEN); URINE BILIRUBIN Negative (NEGATIVE); URINE BLOOD Negative (NEGATIVE); URINE COLOR Yellow (YELLOW); URINE GLUCOSE Negative (NEGATIVE); URINE KETONE Negative (NEGATIVE); URINE LEUKOCYTE ESTERASE Negative (NEGATIVE); URINE NITRATE Negative (NEGATIVE); URINE PROTEIN(semi-quant) Negative (NEGATIVE); URINE RBC 0-2 /hpf (0-2); URINE UROBILINOGEN Negative (NEGATIVE)
[2021-09-27 17:10] LABS: TRICYCLIC ANTIDEPRESS URINE NEGATIVE
[2021-09-28 10:27] LABS: CLOSTRIDIUM DIFF A/B NEG; CLOSTRIDIUM DIFF A/B INTERP No C.diff present
--- NOTE | 2021-09-28 12:01 | NUR ---
JULIA faxed over pt paperwork to [facility] health care unit at [facility] at [phone]. While CHRIS anthony Ashley recieved a phone call from [facility] and pt was accepted. Abigail PEREZ will setup transportation and time. No other needs at this time. DC: [facility]
[2021-09-28 23:30] VITALS: TEMP 98.4
[2021-09-29 09:35] VITALS: BP 108/80; PULSE 115
== END 2021-09-29 09:30 ==
LOC: COL.ER 15:16
PROVIDERS: Emergency Medicine; Family Medicine
DX: R44.0 Auditory hallucinations (principal); R44.1 Visual hallucinations; M19.09 Primary osteoarthritis, other specified site; Z79.01 Long term (current) use of anticoagulants; Z20.822 Contact with and (suspected) exposure to COVID-19
CPT/HCPCS: J7030; J7512

== ENCOUNTER 2022-01-30 18:29 | Emergency (ER) | payer MEDICARE, MEDICAID ==
[~2022-01-30] VITALS: Ht 152.4 cm; Wt 56.4 kg
[2022-01-30 18:30] VITALS: TEMP 99
[2022-01-30 18:59] LABS: BASO # 0.1 K/mm3 (0.0-0.2); BASO % 0.6 % (0.0-2.0); GRAN # 6.4 K/mm3 (1.4-6.5); GRAN % 77.6 % (42.2-75.2); HEMATOCRIT 43.7 % (37.0-47.0); HEMOGLOBIN 14.5 g/dl (12.5-16.0); LYMPH # 1.3 K/mm3 (1.2-3.4); LYMPH % 15.9 % (20.0-51.0); MEAN CELL VOLUME 88 fl (80.0-100.0); MEAN CORPUSCULAR HEMOGLOBIN 29 pg (27-31); MEAN CORPUSCULAR HGB CONC 33 g/dl (33.0-37.0); MEAN PLATELET VOLUME 11.6 fl (7.4-10.4); MONO # 0.4 K/mm3 (0.1-0.6); MONO % 5.3 % (1.7-9.3); PLATELET COUNT 240 K/mm3 (130-400); RED BLOOD COUNT 4.97 M/mm3 (4.10-5.30); REDCELL DISTRIBUTION WIDTH-CV 15.4 % (11.5-14.5)
[2022-01-30 19:12] LABS: ALBUMIN 3.6 gm/dL (3.4-4.8); BILIRUBIN,TOTAL 0.5 mg/dL (0.2-1.2); CREATININE, serum 0.74 mg/dL (0.57-1.11); POTASSIUM 4.3 mmol/L (3.5-4.5); TOTAL PROTEIN 5.7 gm/dL (6.2-8.1)
[2022-01-30 19:18] LABS: TROPONIN-I 0.028 ng/mL (0.00-0.033)
[2022-01-30 22:54] VITALS: BP 146/99; PULSE 88
== END 2022-01-30 22:57 | disposition home or self-care (01) ==
LOC: COL.ER 18:29
PROVIDERS: Emergency Medicine
DX: R07.2 Precordial pain (principal); Z95.5 Presence of coronary angioplasty implant and graft; Z86.79 Personal history of other diseases of the circulatory system

== ENCOUNTER 2022-05-28 20:35 | Inpatient (IN) | payer MEDICARE, MEDICAID ==
[~2022-05-28] VITALS: Ht 165.1 cm; Wt 56.1 kg
[~2022-05-28 20:35] MED LIST changes: +CEFTIN500 MG PO; +FLAGYL500 MG PO
[2022-05-28 21:15] LABS: COLLECTION METHOD CATHETER
[2022-05-28 21:31] LABS: URINE APPEARANCE Clear (CLEAR/HAZY); URINE COLOR Yellow (YELLOW)
[2022-05-28 21:32] LABS: URINE BLOOD 2+ (NEGATIVE); URINE GLUCOSE Negative (NEGATIVE); URINE KETONE Negative (NEGATIVE); URINE NITRATE Negative (NEGATIVE); URINE PROTEIN(semi-quant) Negative (NEGATIVE); URINE UROBILINOGEN 0.2 E.U/dL (0.2-1.0)
[2022-05-28 21:34] LABS: MUCOUS Present (NOT PRESENT); SQUAMOUS EPITHELIAL None Seen /hpf (0-10); URINE BACTERIA None Seen /hpf (NONE SEEN)
[2022-05-28 22:09] LABS: BASO % 0.5 % (0.0-2.0); EOS % 0.2 % (0.0-4.0); GRAN # 4.2 K/mm3 (1.4-6.5); GRAN % 68.3 % (42.2-75.2); HEMATOCRIT 44.8 % (37.0-47.0); HEMOGLOBIN 15.1 g/dl (12.5-16.0); LYMPH # 1.2 K/mm3 (1.2-3.4); LYMPH % 19.7 % (20.0-51.0); MEAN CELL VOLUME 88 fl (80.0-100.0); MEAN CORPUSCULAR HEMOGLOBIN 30 pg (27-31); MEAN CORPUSCULAR HGB CONC 34 g/dl (33.0-37.0); MEAN PLATELET VOLUME 11.9 fl (7.4-10.4); MONO # 0.6 K/mm3 (0.1-0.6); MONO % 10.3 % (1.7-9.3); PLATELET COUNT 202 K/mm3 (130-400); RED BLOOD COUNT 5.09 M/mm3 (4.10-5.30); REDCELL DISTRIBUTION WIDTH-CV 15.7 % (11.5-14.5)
[2022-05-28 22:40] LABS: ALBUMIN 2.9 gm/dL (3.4-4.8); BILIRUBIN,TOTAL 0.6 mg/dL (0.2-1.2); CALCIUM 7.8 mg/dL (8.4-10.2); CREATININE, serum 0.75 mg/dL (0.57-1.11); POTASSIUM 3.9 mmol/L (3.5-4.5); TOTAL PROTEIN 5.3 gm/dL (6.2-8.1)
[2022-05-28 23:41] LABS: CSF APPEARANCE CLEAR; CSF COLOR COLORLESS; CSF MONONUCLEAR 100 % (70-100); CSF POLYMORPHONUCLEAR 0 % (0-6); CSF RBC 35 /mm3 (0-0)
[2022-05-28 23:55] LABS: GLUCOSE,CSF 37 mg/dL (40-70)
[2022-05-29] VITALS (7 sets, daily range): BP systolic 107–164; BP diastolic 75–111; PULSE 94–132; TEMP 97.3–99.6
[2022-05-29] MEDS ORDERED: FOLIC ACID 11 MG/TA1 PO (00:29)
[2022-05-29] MEDS ORDERED: LYRICA 100MG C100 M1 PO (00:30)
[2022-05-29] MEDS ORDERED: CALCIUM 600MG+D1 TAB PO (00:31)
[2022-05-29] MEDS ORDERED: TOPROL XL 50MG50 MG PO (00:31)
[2022-05-29] MEDS ORDERED: PREDNISONE10 MG PO (00:32)
[2022-05-29] MEDS ORDERED: PROBIOTIC BLEN1 EACH PO (00:33)
[2022-05-29] MEDS ORDERED: EFFEXOR XR75 MG/CAP PO (00:35)
[2022-05-29 00:48] LABS: INR 1.4 (0.8-3.0); PROTHROMBIN TIME 15.7 SECONDS (9.7-12.8)
--- NOTE | 2022-05-29 04:12 | NUR ---
Vancomycin Initial Dosing Pharmacy Note Ordering provider: Golden Perez MD Indication/duration: Concern for meningitis x 5 days. Relevant comorbidities: LABS: WBC = 6.1, SCr = 0.75 Recommendation: Will draw troughs and follow levels. Loading dose: 1.25 grams Maintenance dose: 750 mg every 12 hours Trough goal: 15-20 ug/mL
--- NOTE | 2022-05-29 07:14 | NUR ---
pt admitted to room 312 per cart from ED, pt alert, but unresponsive to questions, not speaking or asking questions of staff. unable to do med rec and admission intake, assessment complete, meds given per orders, IVF infusing per PIV @ 100cc/hr, purewick in place, has voided. respiratory panel collected and sent to lab this am.
[2022-05-29 07:31] LABS: BASO % 0.5 % (0.0-2.0); GRAN # 6.3 K/mm3 (1.4-6.5); GRAN % 83.1 % (42.2-75.2); HEMATOCRIT 42.1 % (37.0-47.0); HEMOGLOBIN 13.6 g/dl (12.5-16.0); LYMPH # 0.8 K/mm3 (1.2-3.4); LYMPH % 10.5 % (20.0-51.0); MEAN CELL VOLUME 87 fl (80.0-100.0); MEAN CORPUSCULAR HEMOGLOBIN 28 pg (27-31); MEAN CORPUSCULAR HGB CONC 32 g/dl (33.0-37.0); MEAN PLATELET VOLUME 10.9 fl (7.4-10.4); MONO # 0.4 K/mm3 (0.1-0.6); MONO % 5.4 % (1.7-9.3); PLATELET COUNT 157 K/mm3 (130-400); RED BLOOD COUNT 4.85 M/mm3 (4.10-5.30); REDCELL DISTRIBUTION WIDTH-CV 14.9 % (11.5-14.5)
--- NOTE | 2022-05-29 07:55 | NUR ---
Patient sleeping in bed. Getting NS 100 ML/HR. Telemetry in place NSR. Bed alarm on. Continue monitoring.
--- NOTE | 2022-05-29 09:00 | NUR ---
Patient is alert, partially oriented, able to take her medications. Right now eating her breakfast. States she feels weak. Getting NS 100 ML/HR. Telemetry in place, NSR. Pureweak in place. Assessment completed, meds provided, no other needs at this time. Call elizabeth within reach, bed alar on.
--- NOTE | 2022-05-29 10:08 | NUR ---
Initial visit; Patient sitting very still with her head down. Edge Runner inquired as to whether her breakfast was cold or not good. Keturah replied that she just couldn't eat, she feels really bad. Edge Runner asked if she could keep patient in her prayers and received a positive response. Edge Runner asked if there was anything she could do for patient. Keturah thanked Edge Runner for coming in and stated that she just felt bad. Edge Runner offered God's blessings and will follow up.
[2022-05-29 13:25] LABS: ALBUMIN 3.1 gm/dL (3.4-4.8); BILIRUBIN,TOTAL 0.7 mg/dL (0.2-1.2); CREATININE, serum 0.78 mg/dL (0.57-1.11); POTASSIUM 4.2 mmol/L (3.5-4.5); TOTAL PROTEIN 5.4 gm/dL (6.2-8.1)
--- NOTE | 2022-05-29 15:44 | NUR ---
JULIA contacted the patient's daughter, Aneta Byrne (ph#[phone]), to discuss discharge plan. The patient lives alone in [place]. Aneta lives five minutes away from the patient. Aneta states that the patient is independent with ADLs and has a walker, shower bench, and a toilet riser. The patient used to have home health services from [facility], but Aneta states that the patient was discharged from services. The patient's PCP is Dr. hBumika Kurtz and she receives her medications from [facility] in [facility]. The patient's DPOA-HC is in EMR and it designates her daughter, Aneta. The alternate is her son, Dami Vital. Aneta reports that the plan is for the patient to return back home upon discharge. PT has worked with the patient and recommend home with family support and home health as needed. JULIA addressed this with Aneta. Aneta is interested in getting home health set back up through [facility]. JULIA contacted and faxed a referral to Albert at [facility]. Albert reports that they are able to accept the patient. *Discharge plan: home with home health*
[2022-05-30] VITALS (7 sets, daily range): BP systolic 120–163; BP diastolic 79–94; PULSE 76–87; TEMP 97.9–98.4
[2022-05-30 06:18] LABS: BASO % 0.2 % (0.0-2.0); GRAN # 4.2 K/mm3 (1.4-6.5); GRAN % 78.5 % (42.2-75.2); HEMOGLOBIN 11.7 g/dl (12.5-16.0); LYMPH # 0.8 K/mm3 (1.2-3.4); LYMPH % 14.6 % (20.0-51.0); MEAN CELL VOLUME 88 fl (80.0-100.0); MEAN CORPUSCULAR HEMOGLOBIN 29 pg (27-31); MEAN CORPUSCULAR HGB CONC 32 g/dl (33.0-37.0); MONO # 0.3 K/mm3 (0.1-0.6); MONO % 6.3 % (1.7-9.3); PLATELET COUNT 162 K/mm3 (130-400); RED BLOOD COUNT 4.09 M/mm3 (4.10-5.30); REDCELL DISTRIBUTION WIDTH-CV 14.7 % (11.5-14.5)
[2022-05-30 06:27] LABS: HEMATOCRIT 36.1 % (37.0-47.0)
[2022-05-30 06:37] LABS: ALBUMIN 2.7 gm/dL (3.4-4.8); BILIRUBIN,TOTAL 0.6 mg/dL (0.2-1.2); CALCIUM 8.2 mg/dL (8.4-10.2); CREATININE, serum 0.63 mg/dL (0.57-1.11); POTASSIUM 3.5 mmol/L (3.5-4.5); TOTAL PROTEIN 4.6 gm/dL (6.2-8.1)
--- NOTE | 2022-05-30 08:00 | NUR ---
PATIENT IS AWAKE AND ALERT RESTING IN BED. PATIENT IS COPMLETELY ORIENTED. ASSESSEMT COMPLETED, HOWEVER PATIENT REFUSED TO ALLOW RN TO SEE HER SACRUM. WHEN THIS RN ASKED THE PATIENT IF I COULD ASSIST HER TO ROLL, TO ENSURE HER BOTTOM IS INTACT, THE PATIENT REPLIED "WHAT? NO THAT IS RIDICUOUS." PROVIDED EDUCATION TO THE PATIENT AND INFORMED HER IT IS NORMAL FOR US TO DO A COMPLETE ASSESSMENT, INCLUDING THAT. PATIENT WAS ONEL UPSET. BED ALARM ON. CALL LIGHT WITH IN REACH.
--- NOTE | 2022-05-30 09:48 | NUR ---
Follow-up: Patient resting, Certified Adaptive Physical Educator left card letting Keturah know Certified Adaptive Physical Educator continues to look in on her.
--- NOTE | 2022-05-30 11:26 | NUR ---
The hospitalist notified JULIA that the patient should be ready to discharge tomorrow. JULIA attempted to contact Albert at [facility] to update. JULIA left her a voicemail, notifying her of tentative discharge date. *Discharge plan: home with home health*
--- NOTE | 2022-05-30 17:36 | NUR ---
PATIENT AWAKE AND ALERT, RESTINGIN BED. ORIENTED X3. PATIENT IN PLEASANT MOOD, DENIES ANY NEEDS OR COPLAINTS AT THIS TIME. VANCO INFUSING. BED ALARM ON, CALL LIGHT WITH IN REACH.
--- NOTE | 2022-05-30 19:45 | NUR ---
PATIENT WAVED THIS RN INTO HER. UPON ENTERING, PATIENT WAS CRYING, AND STATED "THEY ARE ALL TALKING ABOUT ME." THE PATIENT WHISPERED, "JUST LISTEN." THIS RN STOOD THERE FOR A MINUTE, THEN INFORMED PATIENT 'I DONT THINK ANYONE IS TALKING ABUOT YOU , I HEAR NURSES TALKING ABOUT MEDICATIONS, BUT THATS IT." PATIENT LOOKED AT ME LIKE IN DISBELIEF LIKE SHE DID NOT BELIEVE ME AND SAID 'OK, WHATEVER." I OFFERED TO CALL THE PATIENTS DAUGHTER, SHE SAID SHE JUST GOT OFF THE PHONE WITH HER. TURNED THE TV ON AND SHOWED THE PATIETN HOW TO ADJUST THE CHANNEL. THEN THE PATIENT SAID "DO YOU HONESTLY THINK I DO NOT KNOW HOW TO WORK THE REMOTE." THIS RN ATTEMPTED TO ASK THE PATIENT IF SHE WAS AWARE WHERE SHE IS (BECAUSE THIS IS DIFFERENT FROM HOW SHE HAS BEEN ALL DAY) AND SHE GOT UPSET THAT I WAS IMPLYING SHE WAS CONFUSED. I ASSURED HER I JUST WANT TO MAKE SURE EVERYTHING IS OK BECAUSE THIS IS NOT LIKE HER. ATTEMPETD TO PROVIDE EMOTIONAL SUPPORT. BED ALARM ON. CALL LIGHT WITHIN REACH. NIGHT INDUSTRIAL FURNACE FABRICATOR MADE AWARE.
[2022-05-31 03:43] VITALS: BP 180/95; PULSE 83; TEMP 97.9
[2022-05-31 04:15] VITALS: BP 177/90; PULSE 78; TEMP 97.9
[2022-05-31 06:32] LABS: BASO % 0.1 % (0.0-2.0); GRAN # 7.5 K/mm3 (1.4-6.5); GRAN % 86.2 % (42.2-75.2); HEMOGLOBIN 11.9 g/dl (12.5-16.0); LYMPH # 0.8 K/mm3 (1.2-3.4); LYMPH % 9.6 % (20.0-51.0); MEAN CELL VOLUME 88 fl (80.0-100.0); MEAN CORPUSCULAR HEMOGLOBIN 29 pg (27-31); MEAN CORPUSCULAR HGB CONC 32 g/dl (33.0-37.0); MEAN PLATELET VOLUME 10.5 fl (7.4-10.4); MONO # 0.3 K/mm3 (0.1-0.6); MONO % 3.8 % (1.7-9.3); PLATELET COUNT 191 K/mm3 (130-400); RED BLOOD COUNT 4.18 M/mm3 (4.10-5.30); REDCELL DISTRIBUTION WIDTH-CV 14.9 % (11.5-14.5)
[2022-05-31 06:46] LABS: ALBUMIN 2.8 gm/dL (3.4-4.8); BILIRUBIN,TOTAL 0.9 mg/dL (0.2-1.2); CREATININE, serum 0.63 mg/dL (0.57-1.11); POTASSIUM 3.1 mmol/L (3.5-4.5); TOTAL PROTEIN 4.9 gm/dL (6.2-8.1)
[2022-05-31 06:48] LABS: HEMATOCRIT 36.9 % (37.0-47.0)
[2022-05-31 07:38] VITALS: BP 159/93; PULSE 93; TEMP 98.1
--- NOTE | 2022-05-31 08:00 | NUR ---
PATIENT AWAKE AND ALERT. STILL UPSET AT THIS TIME. PATIENT SEEMS TO BE PARANOID THAT "PEOPLE ARE TALKING ABOUT HER." DESPITE RN EMOTIONAL SUPPORT PATIENT STILL BELIEVES THAT EVERYONE IS TALKING ABOUT HER. PATIENT NOT ANSWERING RN ORIENTATION QUESTIONS. BED ALARM ON. CALL LIGHT WITHIN REACH.
[2022-05-31] MEDS ORDERED: OMNICEF 300MG300 MG PO (08:58)
--- NOTE | 2022-05-31 09:01 | NUR ---
PATIENT ABLE TO ANSWER ORIENTATION QUESTIONS. PER MD THE BEHAVIOR LAST NIGHT COULD BE DUE TO HER UNDERLYING DEMENTIA.
--- NOTE | 2022-05-31 10:39 | NUR ---
SPOKE WITH PATIENTS DAUGHTER CLARITA. SHE WILL BE HERE AROUND 1500 TO SPECIAL TAX AUDITOR HER MOTHER. RANJANA AWARE. PATIENT GIVEN DISCHARGE INSTRUCTIONS AND EDUCATION. REVIEWED NEW MEICATION, WILL REVIEW WITH FUENTES RAZA WHEN SHE ARRIVES TO ENSURE RANJANA PICKS UP HER PRESCRIOTION AND MAKES HER APT THURSDAY DSICUSSED.
[2022-05-31 11:23] VITALS: BP 168/93; PULSE 89; TEMP 98.3
--- NOTE | 2022-05-31 14:17 | NUR ---
Phone call made to Albert at [facility] to notify of discharge. Clinical updates and discharge orders faxed to Albert. Discharge plan: HOme w/ [facility]
--- NOTE | 2022-05-31 14:35 | NUR ---
PATIENTS DAUGHTER ARRVIED FOR TOP LIFT CUTTER. PCT AND HER ORIENTEE ASSISTED PATIENT TO GET DRESSED. THIS RN DISCONTINUED TELE AND IV. PATIENT TAKEN TO ER ENTRANCE VIA WHEELCHAIR WHERE SHE LEFT IN STABLE CONDITION WITH HER DAUGHTER.
== END 2022-05-31 14:35 | disposition home or self-care (01) | DRG 871 ==
LOC: COL.ER 20:35 → MEDICAL 23:50
PROVIDERS: Nurse Practitioner Family; Personal Emergency Response Attendant; ADMIT Student in an Organized Health Care Education/Training Program
PROC: 009U3ZX Drainage of Spinal Canal, Percutaneous Approach, Diagnostic (ICD-10-PCS; principal; 2022-05-28)
DX: A41.9 Sepsis, unspecified organism (principal); G93.41 Metabolic encephalopathy; D84.9 Immunodeficiency, unspecified; I50.32 Chronic diastolic (congestive) heart failure; E87.20 Acidosis, unspecified; G20 Parkinson's disease; F31.9 Bipolar disorder, unspecified; M41.9 Scoliosis, unspecified; D64.9 Anemia, unspecified; G31.83 Neurocognitive disorder with Lewy bodies; F02.80 Dementia in other diseases classified elsewhere, unspecified severity, without behavioral disturbance, psychotic disturbance, mood disturbance, and anxiety; E78.5 Hyperlipidemia, unspecified; I25.10 Atherosclerotic heart disease of native coronary artery without angina pectoris; E03.9 Hypothyroidism, unspecified; D86.9 Sarcoidosis, unspecified; I11.0 Hypertensive heart disease with heart failure; Z20.822 Contact with and (suspected) exposure to COVID-19; M89.9 Disorder of bone, unspecified; M32.9 Systemic lupus erythematosus, unspecified; E86.0 Dehydration; R65.20 Severe sepsis without septic shock; Z86.711 Personal history of pulmonary embolism; Z79.01 Long term (current) use of anticoagulants; Z79.890 Hormone replacement therapy; Z85.41 Personal history of malignant neoplasm of cervix uteri; Z91.030 Bee allergy status; Z23 Encounter for immunization
CPT/HCPCS: J0692; J0696; J1720; J3370; J7030; J7050; Q9967

== ENCOUNTER → 2022-08-08 | Outpatient (CLI) | payer MEDICARE, MEDICAID ==
[~2022-08-08] MED LIST changes: +CALCIUM 600MG+D1 TAB PO; +CEFTIN 250250 MG/TAB PO; +EFFEXOR XR75 MG/CAP PO; +LYRICA 100MG C100 M1 PO; +OMNICEF 300MG300 MG PO; +PROBIOTIC BLEN1 EACH PO
== END ==
LOC: MC.RAD 13:15
DX: Z12.31 Encounter for screening mammogram for malignant neoplasm of breast (principal); N63.10 Unspecified lump in the right breast, unspecified quadrant

== ENCOUNTER 2023-05-08 15:59 | Outpatient (RCR) | payer MEDICARE, MEDICAID ==
[~2023-05-08] VITALS: Ht 165.1 cm; Wt 59.5 kg
[~2023-05-08 15:59] MED LIST changes: +HYDROXYCHLOROQ400 MG PO; +LYRICA 50MG CAP50 MG PO; +MYRBETR25MG PO
[2023-05-08 16:08] VITALS: BP 103/71; PULSE 96; TEMP 97.4
== END 2023-05-08 16:43 | disposition home or self-care (01) ==
LOC: EUO 15:59
DX: M81.0 Age-related osteoporosis without current pathological fracture (principal)
CPT/HCPCS: J3111

== ENCOUNTER 2023-06-10 16:09 | Outpatient (RCR) | payer MEDICARE, MEDICAID ==
[~2023-06-10] VITALS: Ht 165.1 cm; Wt 59.7 kg
[2023-06-10 16:11] VITALS: BP 129/92; PULSE 89; TEMP 98.2
[2023-06-10] MEDS ORDERED: PROPECIA1 MG PO (16:11)
[2023-06-10] MEDS ORDERED: Romosozumab-aqqg 210 MG/2.34 ML 2-Syringe KIT SQ ONE (16:15)
== END 2023-06-10 16:23 ==
LOC: EUO 16:09
DX: M81.0 Age-related osteoporosis without current pathological fracture (principal)
CPT/HCPCS: J3111

== ENCOUNTER 2023-07-09 16:02 | Outpatient (RCR) | payer MEDICARE, MEDICAID ==
[~2023-07-09] VITALS: Ht 165.1 cm; Wt 61.1 kg
[~2023-07-09 16:02] MED LIST changes: +PROPECIA1 MG PO
[2023-07-09 16:17] VITALS: BP 104/72; PULSE 91; TEMP 98.1
[2023-07-09] MEDS ORDERED: EVENITY (2210 MG/2.3 SQ (16:25)
[2023-07-09] MEDS ORDERED: Romosozumab-aqqg 210 MG/2.34 ML 2-Syringe KIT SQ ONE (16:30)
--- NOTE | 2023-07-09 16:40 | NUR ---
Pt tolerated injection without issue. She and daughter exit dept, free of complaints at discharge.
== END 2023-07-09 16:40 | disposition home or self-care (01) ==
LOC: EUO 16:02
DX: M81.0 Age-related osteoporosis without current pathological fracture (principal)
CPT/HCPCS: J3111

== ENCOUNTER 2023-11-12 22:49 | Observation (INO) | payer MEDICARE, MEDICAID ==
[~2023-11-12] VITALS: Ht 165.1 cm; Wt 60.8 kg
[~2023-11-12 22:49] MED LIST changes: +EVENITY (2210 MG/2.3 SQ
[2023-11-13 00:23] LABS: BASO % 0.3 % (0.0-2.0); EOS % 0.3 % (0.0-4.0); GRAN # 8.1 K/mm3 (1.4-6.5); GRAN % 78.9 % (42.2-75.2); HEMATOCRIT 44.3 % (37.0-47.0); HEMOGLOBIN 14.4 g/dl (12.5-16.0); LYMPH # 0.8 K/mm3 (1.2-3.4); LYMPH % 7.7 % (20.0-51.0); MEAN CELL VOLUME 87 fl (80.0-100.0); MEAN CORPUSCULAR HEMOGLOBIN 28 pg (27-31); MEAN CORPUSCULAR HGB CONC 33 g/dl (33.0-37.0); MEAN PLATELET VOLUME 11.5 fl (7.4-10.4); MONO # 1.2 K/mm3 (0.1-0.6); MONO % 11.4 % (1.7-9.3); PLATELET COUNT 224 K/mm3 (130-400); RED BLOOD COUNT 5.08 M/mm3 (4.10-5.30); REDCELL DISTRIBUTION WIDTH-CV 16.4 % (11.5-14.5)
[2023-11-13 00:27] LABS: ALBUMIN 3.4 g/dL (3.4-4.8); BILIRUBIN,TOTAL 0.4 mg/dL (0.2-1.2); C-REACTIVE PROTEIN 0.1 mg/dL (0.00-0.50); CALCIUM 9.8 mg/dL (8.4-10.2); CREATININE, serum 1.31 mg/dL (0.57-1.11); POTASSIUM 3.9 mEq/L (3.5-4.5); TOTAL PROTEIN 5.8 g/dl (6.2-8.1)
[2023-11-13 00:38] LABS: TROPONIN-I 0.057 ng/mL (0.00-0.033)
[2023-11-13] MEDS ORDERED: LR 1,000 ML IV ONE (00:45)
[2023-11-13] MEDS ORDERED: cefTRIAXone 1 G in Water For Injection,Sterile 10 ML IV ONE (01:15)
[2023-11-13 01:28] LABS: COLLECTION METHOD CATHETER
[2023-11-13 01:38] LABS: URINE APPEARANCE CLOUDY (CLEAR/HAZY); URINE BLOOD NEGATIVE (NEGATIVE); URINE COLOR Dark Yellow (YELLOW); URINE GLUCOSE NEGATIVE (NEGATIVE); URINE KETONE TRACE (NEGATIVE); URINE NITRATE NEGATIVE (NEGATIVE); URINE PROTEIN(semi-quant) 1+ (NEGATIVE)
[2023-11-13] MEDS ORDERED: Iohexol 300 - 100 ML VIAL IV ONE (01:43)
[2023-11-13] MEDS ORDERED: NS 50 ML IV ONE (01:44)
[2023-11-13] MEDS ORDERED: B-121000 MCG PO (01:51)
[2023-11-13 01:54] LABS: MUCOUS PRESENT (NOT PRESENT); URINE BACTERIA OCCASIONAL /hpf (NONE SEEN); URINE CALCIUM OXALATE CRYSTAL PRESENT (NOT PRESENT); URINE RBC 0-2 /hpf (0-2); URINE WBC 0-2 /hpf (0-2)
[2023-11-13] MEDS ORDERED: LYRICA 100MG C100 M1 PO (01:55)
[2023-11-13] MEDS ORDERED: MYRBETR50MG PO (01:56)
[2023-11-13] MEDS ORDERED: LOMOTIL 0.025 M1 TAB PO (02:01)
[2023-11-13] MEDS ORDERED: Diphenoxylate/Atropine 2.5-0.025 MG TAB PO PRN (02:15)
[2023-11-13] MEDS ORDERED: Glucagon 1 MG VIAL IM PRN (03:00)
[2023-11-13] MEDS ORDERED: Acetaminophen 325 MG TAB PO PRN (03:00)
[2023-11-13] MEDS ORDERED: Dextrose (Glucose) 15 GM (4 x 3.75 GM) Chewable TABLET PACK PO PRN (03:00)
[2023-11-13] MEDS ORDERED: Dextrose 50% Water 25 GM/50 ML SYRINGE IV PRN (03:00)
[2023-11-13] MEDS ORDERED: predniSONE 10 MG TAB PO SCH (08:00)
[2023-11-13] MEDS ORDERED: Pregabalin 50 MG CAP PO SCH ×2 (08:00→21:00)
[2023-11-13] MEDS ORDERED: Mirabegron ER 50 MG TAB PO SCH (09:00)
[2023-11-13] MEDS ORDERED: risperiDONE 0.5 MG TAB PO SCH (09:00)
[2023-11-13] MEDS ORDERED: NS 1,000 ML IV SCH (11:00)
[2023-11-13] MEDS ORDERED: Albuterol/Ipratropium 3 MG-0.5 MG/3 ML Neb Soln IH PRN (11:00)
[2023-11-13 11:18] VITALS: BP 131/86; PULSE 78; TEMP 97.8
[2023-11-13] MEDS ORDERED: Folic Acid 1 MG TAB PO SCH (12:00)
[2023-11-13] MEDS ORDERED: Cyanocobalamin (Vit B-12) 1,000 MCG TAB PO SCH (12:00)
[2023-11-13] MEDS ORDERED: Calcium Carb/Vit D3 500 mg-200 Units TAB PO SCH (12:00)
[2023-11-13 12:18] LABS: CALCIUM 9.2 mg/dL (8.4-10.2); CREATININE, serum 0.93 mg/dL (0.57-1.11); POTASSIUM 3.9 mEq/L (3.5-4.5)
[2023-11-13 12:40] LABS: BASO # 0.1 K/mm3 (0.0-0.2); BASO % 0.6 % (0.0-2.0); EOS % 0.5 % (0.0-4.0); GRAN # 6.7 K/mm3 (1.4-6.5); GRAN % 79.6 % (42.2-75.2); HEMOGLOBIN 14.2 g/dl (12.5-16.0); LYMPH # 1.2 K/mm3 (1.2-3.4); LYMPH % 13.7 % (20.0-51.0); MEAN CELL VOLUME 89 fl (80.0-100.0); MEAN CORPUSCULAR HEMOGLOBIN 29 pg (27-31); MEAN CORPUSCULAR HGB CONC 32 g/dl (33.0-37.0); MEAN PLATELET VOLUME 11.4 fl (7.4-10.4); MONO # 0.4 K/mm3 (0.1-0.6); MONO % 4.9 % (1.7-9.3); PLATELET COUNT 202 K/mm3 (130-400); RED BLOOD COUNT 4.93 M/mm3 (4.10-5.30); REDCELL DISTRIBUTION WIDTH-CV 16.9 % (11.5-14.5)
[2023-11-13 13:00] VITALS: BP_SYST 131
[2023-11-13] MEDS ORDERED: Albuterol/Ipratropium 3 MG-0.5 MG/3 ML Neb Soln IH SCH (14:00)
[2023-11-13 16:04] VITALS: BP 131/85; PULSE 81; TEMP 98
[2023-11-13 17:18] VITALS: BP_SYST 131
[2023-11-13] MEDS ORDERED: risperiDONE 1 MG TAB PO SCH (21:00)
[2023-11-13] MEDS ORDERED: Atorvastatin 40 MG TAB PO SCH (21:00)
[2023-11-13] MEDS ORDERED: Ferrous Sulfate 325 MG TAB PO SCH (21:00)
== END 2023-11-13 18:25 | disposition home or self-care (01) ==
LOC: COL.ER 22:49 → MEDICAL 11-13 02:21
PROVIDERS: Nurse Practitioner; Nurse Practitioner Family; ADMIT Internal Medicine
DX: J96.01 Acute respiratory failure with hypoxia (principal); R65.10 Systemic inflammatory response syndrome (SIRS) of non-infectious origin without acute organ dysfunction; E87.20 Acidosis, unspecified; I25.10 Atherosclerotic heart disease of native coronary artery without angina pectoris; R79.89 Other specified abnormal findings of blood chemistry; I45.10 Unspecified right bundle-branch block; I11.0 Hypertensive heart disease with heart failure; I50.30 Unspecified diastolic (congestive) heart failure; E78.5 Hyperlipidemia, unspecified; E16.2 Hypoglycemia, unspecified; N17.9 Acute kidney failure, unspecified; G31.83 Neurocognitive disorder with Lewy bodies; G20.A1 Parkinson's disease without dyskinesia, without mention of fluctuations; F02.80 Dementia in other diseases classified elsewhere, unspecified severity, without behavioral disturbance, psychotic disturbance, mood disturbance, and anxiety; D86.9 Sarcoidosis, unspecified; G89.29 Other chronic pain; M48.54XD Collapsed vertebra, not elsewhere classified, thoracic region, subsequent encounter for fracture with routine healing; E03.9 Hypothyroidism, unspecified; M32.9 Systemic lupus erythematosus, unspecified; F31.9 Bipolar disorder, unspecified; Z79.01 Long term (current) use of anticoagulants; Z86.711 Personal history of pulmonary embolism; Z79.899 Other long term (current) drug therapy; Z85.828 Personal history of other malignant neoplasm of skin; Z79.890 Hormone replacement therapy
CPT/HCPCS: G0378; J0696; J7030; J7120; J7512; Q9967

== ENCOUNTER 2023-11-28 16:48 | Observation (INO) | payer MEDICARE ==
[~2023-11-28] VITALS: Ht 152.4 cm; Wt 56.2 kg
[~2023-11-28 16:48] MED LIST changes: +B-121000 MCG PO; +LOMOTIL 0.025 M1 TAB PO; +MYRBETR50MG PO
[2023-11-28 17:23] LABS: COLLECTION METHOD CATHETER
[2023-11-28 17:29] LABS: BASO % 0.4 % (0.0-2.0); EOS % 0.1 % (0.0-4.0); GRAN # 6.6 K/mm3 (1.4-6.5); GRAN % 88.2 % (42.2-75.2); HEMATOCRIT 49.8 % (37.0-47.0); HEMOGLOBIN 15.6 g/dl (12.5-16.0); LYMPH # 0.7 K/mm3 (1.2-3.4); LYMPH % 8.9 % (20.0-51.0); MEAN CELL VOLUME 91 fl (80.0-100.0); MEAN CORPUSCULAR HEMOGLOBIN 29 pg (27-31); MEAN CORPUSCULAR HGB CONC 31 g/dl (33.0-37.0); MEAN PLATELET VOLUME 11.2 fl (7.4-10.4); MONO # 0.1 K/mm3 (0.1-0.6); MONO % 1.5 % (1.7-9.3); PLATELET COUNT 245 K/mm3 (130-400); RED BLOOD COUNT 5.46 M/mm3 (4.10-5.30); REDCELL DISTRIBUTION WIDTH-CV 16.9 % (11.5-14.5)
[2023-11-28 17:33] LABS: URINE APPEARANCE CLEAR (CLEAR/HAZY); URINE BLOOD NEGATIVE (NEGATIVE); URINE COLOR YELLOW (YELLOW); URINE GLUCOSE NEGATIVE (NEGATIVE); URINE KETONE NEGATIVE (NEGATIVE); URINE NITRATE NEGATIVE (NEGATIVE); URINE PROTEIN(semi-quant) NEGATIVE (NEGATIVE); URINE UROBILINOGEN 0.2 E.U/dL (0.2-1.0)
[2023-11-28 17:33] LABS: PARTIAL THROMBOPLASTIN TIME 36.5 SECONDS (26.0-37.0)
[2023-11-28 17:42] LABS: ALBUMIN 3.9 g/dL (3.4-4.8); BILIRUBIN,TOTAL 0.6 mg/dL (0.2-1.2); C-REACTIVE PROTEIN 0.27 mg/dL (0.00-0.50); CALCIUM 9.4 mg/dL (8.4-10.2); CREATININE, serum 1.03 mg/dL (0.57-1.11); POTASSIUM 4.7 mEq/L (3.5-4.5); TOTAL PROTEIN 6.7 g/dl (6.2-8.1)
[2023-11-28 18:00] LABS: TROPONIN-I 0.049 ng/mL (0.00-0.033)
[2023-11-28 18:02] LABS: THYROID STIMULATING HORMONE 1.801 uIU/mL (0.350-4.940)
[2023-11-28] MEDS ORDERED: Diphenoxylate/Atropine 2.5-0.025 MG TAB PO ONE (20:15)
[2023-11-28 22:22] VITALS: BP 145/89; PULSE 86; TEMP 98
[2023-11-28 22:27] VITALS: BP_SYST 145
--- NOTE | 2023-11-28 22:42 | NUR ---
Report received from ER at approximately 2140. Patient arrived to medical unit at 2215. Alert and oriented. Denies having pain and discomfort. Peripheral INT to right AC. Reports SOB is better. LS CTA in upper lobes, diminished in lower. HRR. Telemetry ordered, policy value calculator went to get box. BSAx4. Reports diarrhea, but this is normal for her. No edema. Skin very dry, especially BLE, flaking present. Skin color dusky. Has extesive dark bruising to BUE and BLE. Patient reports she is on a blood thinner and bruises very easily. High fall risk precautions initiated. Voices no questions, needs, or concerns at this time. In bed with call light within reach. Bed alarm on. Patient unable to state what medications she takes at home, but stated that her daughter stated there has been no changes in medications since she was discharged 2 weeks ago. Evi in room, and aware. Stated she will update med red.
[2023-11-28 22:55] VITALS: BP 137/90; PULSE 89; TEMP 98.3
[2023-11-28] MEDS ORDERED: LR 1,000 ML IV SCH (23:15)
[2023-11-28] MEDS ORDERED: Atorvastatin 40 MG TAB PO SCH (23:26)
[2023-11-28] MEDS ORDERED: Pregabalin 50 MG CAP PO SCH (23:29)
[2023-11-28] MEDS ORDERED: Acetaminophen 325 MG TAB PO PRN (23:30)
[2023-11-28 23:39] VITALS: BP 137/90
[2023-11-28] MEDS ORDERED: Diphenoxylate/Atropine 2.5-0.025 MG TAB PO PRN (23:45)
[2023-11-29] VITALS (7 sets, daily range): BP systolic 110–138; BP diastolic 73–87; PULSE 84–87; TEMP 97.4–98.3
[2023-11-29] MEDS ORDERED: risperiDONE 1 MG TAB PO SCH (00:30)
--- NOTE | 2023-11-29 03:10 | NUR ---
Troponin called to JEANNINE Steve.
--- NOTE | 2023-11-29 06:17 | NUR ---
Patient has denied having pain and discomfort. Reports breathing is much better this morning compared to when she first came in. Voices no questions, needs, or concerns at this time. In bed with call light within reach. High fall risk precautions in place. Bed alarm on.
[2023-11-29 07:07] LABS: BASO % 0.3 % (0.0-2.0); EOS % 0.3 % (0.0-4.0); GRAN % 68.8 % (42.2-75.2); HEMATOCRIT 40.4 % (37.0-47.0); LYMPH # 1.4 K/mm3 (1.2-3.4); LYMPH % 19.8 % (20.0-51.0); MEAN CORPUSCULAR HGB CONC 33 g/dl (33.0-37.0); MEAN PLATELET VOLUME 11.5 fl (7.4-10.4); MONO # 0.7 K/mm3 (0.1-0.6); MONO % 10.2 % (1.7-9.3); PLATELET COUNT 196 K/mm3 (130-400); RED BLOOD COUNT 4.72 M/mm3 (4.10-5.30); REDCELL DISTRIBUTION WIDTH-CV 16.7 % (11.5-14.5)
[2023-11-29 07:09] LABS: HEMOGLOBIN 13.5 g/dl (12.5-16.0); MEAN CELL VOLUME 86 fl (80.0-100.0); MEAN CORPUSCULAR HEMOGLOBIN 29 pg (27-31)
[2023-11-29 07:26] LABS: CALCIUM 8.9 mg/dL (8.4-10.2); CREATININE, serum 0.79 mg/dL (0.57-1.11); POTASSIUM 3.4 mEq/L (3.5-4.5)
[2023-11-29] MEDS ORDERED: Pregabalin 50 MG CAP PO SCH (08:00)
[2023-11-29] MEDS ORDERED: predniSONE 10 MG TAB PO SCH (08:00)
[2023-11-29] MEDS ORDERED: Hydroxychloroquine 200 MG TAB PO SCH (08:00)
[2023-11-29] MEDS ORDERED: Mirabegron ER 50 MG TAB PO SCH (09:00)
[2023-11-29] MEDS ORDERED: risperiDONE 0.5 MG TAB PO SCH (09:00)
--- NOTE | 2023-11-29 09:00 | NUR ---
PATIENT RESTING IN BED UPON ENTERING ROOM. MORNING MEDICATIONS ADMINISTERED PER eMAR. SHIFT ASSESSMENT COMPLETED. PATIENT DENIES ANY CHEST PAIN OR SOB THIS MORNING. CURRENTLY ON ROOM AIR, IVF INFUSING. UPDATED ON PLAN OF CARE, CALL LIGHT WITHIN REACH, BED ALARM IN PLACE. WILL CONTINUE TO MONITOR.
[2023-11-29] MEDS ORDERED: LASIX 20MG TABL20 MG PO (10:57)
--- NOTE | 2023-11-29 11:40 | NUR ---
IV REMOVED. DISCHARGE INSTURCTIONS REVIEWED, ALL QUESTIONS ANSWERED. PATIENT IS WAITING FOR HER DAUGHTER TO ARRIVE.
[2023-11-29] MEDS ORDERED: Folic Acid 1 MG TAB PO SCH (12:00)
[2023-11-29] MEDS ORDERED: Calcium Carb/Vit D3 500 mg-200 Units TAB PO SCH (12:00)
[2023-11-29] MEDS ORDERED: Cyanocobalamin (Vit B-12) 1,000 MCG TAB PO SCH (12:00)
--- NOTE | 2023-11-29 12:53 | NUR ---
TELEMETRY REMOVED. PATIENT ESCORTED OFF OF UNIT BY VIA RIDDHI STAFF AND LEFT BY PRIVATE VEHICLE WITH DAUGHTER.
[2023-11-29] MEDS ORDERED: Ferrous Sulfate 325 MG TAB PO SCH (21:00)
== END 2023-11-29 12:54 | disposition home or self-care (01) ==
LOC: COL.ER 16:48 → MEDICAL 21:42
PROVIDERS: Emergency Medicine; Nurse Practitioner Family; ADMIT Internal Medicine
DX: R07.89 Other chest pain (principal); I25.10 Atherosclerotic heart disease of native coronary artery without angina pectoris; I50.30 Unspecified diastolic (congestive) heart failure; I13.0 Hypertensive heart and chronic kidney disease with heart failure and stage 1 through stage 4 chronic kidney disease, or unspecified chronic kidney disease; E78.5 Hyperlipidemia, unspecified; Z86.711 Personal history of pulmonary embolism; N18.30 Chronic kidney disease, stage 3 unspecified; G20.A1 Parkinson's disease without dyskinesia, without mention of fluctuations
CPT/HCPCS: G0378; J7120; J7512

== ENCOUNTER 2024-01-11 20:59 | Observation (INO) | payer MEDICARE ==
[~2024-01-11] VITALS: Ht 165.1 cm; Wt 59.9 kg
[2024-01-11 21:20] LABS: BASO # 0.1 K/mm3 (0.0-0.2); BASO % 0.9 % (0.0-2.0); GRAN # 4.8 K/mm3 (1.4-6.5); GRAN % 72.6 % (42.2-75.2); HEMATOCRIT 46.4 % (37.0-47.0); HEMOGLOBIN 14.8 g/dl (12.5-16.0); LYMPH # 1.1 K/mm3 (1.2-3.4); LYMPH % 17.1 % (20.0-51.0); MEAN CELL VOLUME 89 fl (80.0-100.0); MEAN CORPUSCULAR HEMOGLOBIN 28 pg (27-31); MEAN CORPUSCULAR HGB CONC 32 g/dl (33.0-37.0); MEAN PLATELET VOLUME 10.4 fl (7.4-10.4); MONO # 0.6 K/mm3 (0.1-0.6); MONO % 8.5 % (1.7-9.3); PLATELET COUNT 228 K/mm3 (130-400); RED BLOOD COUNT 5.21 M/mm3 (4.10-5.30); REDCELL DISTRIBUTION WIDTH-CV 14.9 % (11.5-14.5)
[2024-01-11 21:26] LABS: INR 1.4 (0.8-3.0); PROTHROMBIN TIME 14.7 SECONDS (9.7-12.8)
[2024-01-11 21:33] LABS: ALBUMIN 3.3 g/dL (3.4-4.8); BILIRUBIN,TOTAL 0.5 mg/dL (0.2-1.2); CALCIUM 8.9 mg/dL (8.4-10.2); CREATININE, serum 1.03 mg/dL (0.57-1.11); POTASSIUM 3.9 mEq/L (3.5-4.5); TOTAL PROTEIN 5.5 g/dl (6.2-8.1)
[2024-01-11 21:45] LABS: TROPONIN-I 0.135 ng/mL (0.00-0.033)
[2024-01-11] MEDS ORDERED: NS 1,000 ML IV ONE (22:00)
[2024-01-11] MEDS ORDERED: Acetaminophen 325 MG TAB PO ONE (22:00)
[2024-01-11 22:09] LABS: COLLECTION METHOD CLEAN CATCH
[2024-01-11 22:20] LABS: URINE APPEARANCE CLEAR (CLEAR/HAZY); URINE BLOOD NEGATIVE (NEGATIVE); URINE COLOR YELLOW (YELLOW); URINE GLUCOSE NEGATIVE (NEGATIVE); URINE KETONE TRACE (NEGATIVE); URINE NITRATE NEGATIVE (NEGATIVE); URINE PROTEIN(semi-quant) 2+ (NEGATIVE)
[2024-01-11] MEDS ORDERED: Atorvastatin 40 MG TAB PO SCH (22:43)
[2024-01-11] MEDS ORDERED: Pregabalin 50 MG CAP PO SCH (22:44)
[2024-01-11] MEDS ORDERED: MASON NATURAL325 MG PO (22:45)
[2024-01-11] MEDS ORDERED: risperiDONE 1 MG TAB PO SCH (22:46)
[2024-01-11] MEDS ORDERED: Ferrous Sulfate 325 MG TAB PO SCH (22:48)
[2024-01-11] MEDS ORDERED: Acetaminophen 325 MG TAB PO PRN (23:00)
[2024-01-11] MEDS ORDERED: Iohexol 300 - 100 ML VIAL IV ONE (23:37)
[2024-01-11] MEDS ORDERED: NS 100 ML IV ONE (23:38)
[2024-01-12] VITALS (9 sets, daily range): BP systolic 118–160; BP diastolic 77–87; PULSE 84–100; TEMP 97.9–98.3
[2024-01-12] MEDS ORDERED: NS 1,000 ML IV SCH (00:45)
[2024-01-12 01:24] LABS: ARTERIAL BLD GAS O2 SATURATION 93.5 % (92-100); ARTERIAL BLD GAS TCO2 CT 21.5; ARTERIAL BLOOD GAS BASE EXCESS -2.1 (-2-2); ARTERIAL BLOOD GAS HCO3 20.6 meq/L (22-26); ARTERIAL BLOOD GAS PCO2 29.8 mmHg (35-45); ARTERIAL BLOOD GAS PO2 68.5 mmHg (80-100); ARTERIAL BLOOD GAS pH 7.46 (7.35-7.45)
--- NOTE | 2024-01-12 01:50 | NUR ---
Admitted to medical floor from ER with r/o stroke, right leg pain/weakness, AMS, increased troponin. Pt is alert/and oriented x4 at this time, does at times need some time to answer but does answer correctly, VSS, right leg painful , can slowly lift it up but cannot hold the leg up, otherwise just overall weak. IV of NS at 75cc/hr to R/ac IV site. Did pass the swallow screening- taking liquids fine. Using the bedpan to void/per ER she was so weak and with the right leg pain could not put any weight on the right leg- did talk to Evi PAEZ about the med rec - no list, Evi PAEZ states she called to daughter and went over the list so it s all correct. Pt was very seriously uppset/angry that we needed to look at her bottom for skin issues/ refused at this time, did a quick look when turned and no breakdown noted- bruise to upper right buttock, lower extremities with dk brown discoloration /bruising, also arms with various bruises.
[2024-01-12] MEDS ORDERED: predniSONE 10 MG TAB PO ONE (02:15)
--- NOTE | 2024-01-12 02:30 | NUR ---
Evi PAEZ notified of Troponin of 0.140,, states she was already aware and put in orders for cards consult,, also informed that pt states she took all her night meds at 7 pm last night before she came into the ER - Bed alarm on,, Fall Risk precautions in place
--- NOTE | 2024-01-12 05:41 | NUR ---
CRITICAL TROPONIN OF 0.119 RECEIVED. HOSPITALIST, MONICA BARNETT APRN, NOTIFIED
--- NOTE | 2024-01-12 06:03 | NUR ---
Did get a couple of hours of sleep, IV NS at 75cc/hr, will have echo and MRI today, continues with weakness to right leg/ right leg pain. Has been voiding well per bedpan-
[2024-01-12] MEDS ORDERED: Pregabalin 50 MG CAP PO SCH (08:00)
[2024-01-12] MEDS ORDERED: Hydroxychloroquine 200 MG TAB PO SCH (08:00)
--- NOTE | 2024-01-12 08:00 | NUR ---
0655-PT RESTING IN BED. PT IS ON RA. PT IS SR ON TELE. PT IS AXOX4 BUT FORGETFUL. PT IS IN FALL PRECAUTIONS AND BEDALARM ACTIVE. PT HAS CALL LIGHT AND INSTRUCTED TO CALL WITH ALL NEEDS. PT HAS EQUAL STRONG UPPER EXTREMETY STRENGTH. PT IS ABLE TO MOVE AND LIFT LEFT LEG, BUT IS VERY WEAK IN RIGHT LEG AND NOT ABLE TO LIFT OFF THE BED.
[2024-01-12] MEDS ORDERED: predniSONE 10 MG TAB PO SCH (09:00)
[2024-01-12] MEDS ORDERED: Mirabegron ER 50 MG TAB PO SCH (09:00)
[2024-01-12] MEDS ORDERED: risperiDONE 0.5 MG TAB PO SCH (09:00)
[2024-01-12] MEDS ORDERED: Cyanocobalamin (Vit B-12) 1,000 MCG TAB PO SCH (12:00)
[2024-01-12] MEDS ORDERED: Calcium Carb/Vit D3 500 mg-5 mcg(200 Units) TAB PO SCH (12:00)
[2024-01-12] MEDS ORDERED: Folic Acid 1 MG TAB PO SCH (12:00)
--- NOTE | 2024-01-12 12:23 | NUR ---
needleworker reviewed previous notes indicating that patient was previously interested in home health. JULIA notes during this hospital stay patient has not been interested in working with therapy because she was adamant that she was going to return home no matter what. needleworker met with patient to discuss discharge planning. Patient lives by herself in [place]. Patient stated her daughter lives about 5 minutes from her. Aneta is patient's daughter and primary DPOA-HC, P# [phone]. PCP is Dr. Kurtz, Pharmacy is [facility]. Patient reports she has some issues with affording some medications but she is trying to get on [employer] that would make them more affordable. SW provided information on [facility] and discussed the discount programs that sometimes pharmacies have available depending on the medications. Patient's insurance is Medicare A and B and has applied for [employer]. DPOA-HC is on the EMR appointing Aneta and Dami as the secondary. DME is rollator walker. Patient reports Haylee comes to her home every Thursday to assist with bathing and light housekeeping and her daughter helps her shower on Tuesdays. Patient expressed she lives in an apartment but it is on a one-story apartment with no steps to get inside. Patient's daughter transports her to and from all appointments. Patient would like to return home at time of discharge. SW discussed skilled home health for PT, OT and nursing. SW provided the Medicare.gov list of options for home health. Patient stated she would like Haylee to keep with the same agency. SW explained she would notify her daughter of this as well to keep her updated. Patient understood but explained her daughter currently has COVID so she wanted the social work program coordinator to wait until later today to call so her daughter could sleep. SW asked whom would be able to pick her up upon discharge. Patient stated her son could. SW explained she would send the referral for home health and Haylee would be in touch to set up the first appointment. JULIA secure emailed referral to [facility]. SW contacted Aneta, patient's daughter, to discuss discharge plan. JULIA explained patient is currently refusing to work with therapy because she wants to return home. JULIA explained she was going to send the referral for home health but it is benefical for her to work with them while in the hospital in case she needs additional services than home health or equipment needs. Aneta expressed she would try to encourage the patient to work with therapy. Aneta explained that patient's son has been unreliable, so it is possible that he does not supervisor opening and picking patient. Aneta may need to supervisor opening and picking patient at hospital and is okay with doing so. Aneta stated she would wear a mask if it was okay for staff to take patient down to her car upon discharge. JULIA relayed the above information to main medical authorization specialist, Kamila. Discharge plan: Home with Home Health- Haylee
[2024-01-12] MEDS ORDERED: Gadoterate 15 ML VIAL IV ONE (14:26)
--- NOTE | 2024-01-12 15:56 | NUR ---
fruit farmworker was notified [facility] is able to accept patient. Discharge plan: Home with Home Health - Haylee
--- NOTE | 2024-01-12 20:30 | NUR ---
Initial shift assessment done-- pleasant, oriented x4 at this time, continues with the RLE weakness , using the purewick and has good amounts light yellow urine, does not want a snack tonight, tele on-SR, Taking meds with sips of water without problems.
[2024-01-13] VITALS (10 sets, daily range): BP systolic 104–121; BP diastolic 72–77; PULSE 80–88; TEMP 97.7–98.3
--- NOTE | 2024-01-13 05:15 | NUR ---
Very quiet night- has been sleeping most of the night- oriented x4, is able to bend right leg at the knee but cannot hold - Purewick on- draining clear yelloe urine. Deneis pain.
[2024-01-13 06:59] LABS: BASO % 0.5 % (0.0-2.0); EOS # 0.1 K/mm3 (0.0-0.7); GRAN # 3.2 K/mm3 (1.4-6.5); GRAN % 53.1 % (42.2-75.2); LYMPH # 1.8 K/mm3 (1.2-3.4); LYMPH % 29.6 % (20.0-51.0); MEAN CELL VOLUME 87 fl (80.0-100.0); MEAN CORPUSCULAR HEMOGLOBIN 29 pg (27-31); MEAN CORPUSCULAR HGB CONC 34 g/dl (33.0-37.0); MONO # 0.8 K/mm3 (0.1-0.6); PLATELET COUNT 191 K/mm3 (130-400); RED BLOOD COUNT 4.24 M/mm3 (4.10-5.30); REDCELL DISTRIBUTION WIDTH-CV 15.2 % (11.5-14.5)
[2024-01-13 07:03] LABS: HEMOGLOBIN 12.4 g/dl (12.5-16.0)
--- NOTE | 2024-01-13 07:29 | NUR ---
Call fram lab results Hgb 14.8 to 12.4 today, reporte to Dr. Magallon. No further orders.
[2024-01-13 07:30] LABS: CALCIUM 8.2 mg/dL (8.4-10.2); CREATININE, serum 0.7 mg/dL (0.57-1.11); POTASSIUM 3.1 mEq/L (3.5-4.5)
[2024-01-13] MEDS ORDERED: *Potassium Replacement Protocol MC SCH (08:00)
[2024-01-13 08:41] LABS: CHOLESTEROL RISK RATIO 2.5
--- NOTE | 2024-01-13 10:00 | NUR ---
Patient resting in bed, alert and oriented, denies any pain or discomfort. Cooperative. Assessment completed. Meds given by Student nurse. No further needs at this time. Call light within reach.
--- NOTE | 2024-01-13 13:16 | NUR ---
D: Digital Sales Representative stopped by room on rounds. A: Pt was resting and content sitting in her chair. Pt has no needs right now. P: Digital Sales Representative informed pt that if she needed anything from the nurse staff community health area to let her nurse know. Digital Sales Representative will follow up as needed.
--- NOTE | 2024-01-13 14:20 | NUR ---
Patient was provided with discharge information, all questions answererd. IV access and telemetry were discontinued. Pt awaiting for family to pick her up.
--- NOTE | 2024-01-13 14:31 | NUR ---
plant nursery worker attended clinical rounding and was informed pt can discharge today, but Dr. Magallon has concerns regarding her living alone. JULIA mentioned pt declined PT/OT yesterday, but was agreeable to [facility]. JULAI spoke with Daughter, Aneta to express concerns from clinical team. JULIA discussed SNF, but pt would be private pay. Daughter reports they cannot afford to do that and this time. She states pt has 3-4 hours a week of private duty care from [facility]. She reports pt's son is not reliable, even for transportation today. Aneta states her and step-son are in the [facility] and hopefully discharge soon. JULIA later discussed PT/ST reccomendations again and since she cannot private pay for SNF, to increase private duty in the home along with . She was agreeable to this and is aware on how to contact [facility]. She is working on finding transportation for pt and was provided the nurse's station number to call for updates. JULIA spoke with Albert at [facility] who was not sure if pt was on the private duty list, but will follow up with family. JULIA faxed discharge orders and updates. JULIA informed Dr. Magallon of the above plan and family cannot private pay for a skilled stay anywhere. Discharge Plan: home with [facility] and private duty
--- NOTE | 2024-01-13 16:04 | NUR ---
JULIA called DaughterAneta to inquire about ride status as pt reports concerns about her transportation home. JULIA left voicemail at 3:16pm with daughter to provide an update.
== END 2024-01-13 16:50 | disposition home health service (06) ==
LOC: COL.ER 20:59 → MEDICAL 01-12 01:05
PROVIDERS: Nurse Practitioner Family; Nurse Practitioner Primary Care; ADMIT Hospitalist
DX: G93.40 Encephalopathy, unspecified (principal); R53.1 Weakness; I25.10 Atherosclerotic heart disease of native coronary artery without angina pectoris; I13.0 Hypertensive heart and chronic kidney disease with heart failure and stage 1 through stage 4 chronic kidney disease, or unspecified chronic kidney disease; I50.30 Unspecified diastolic (congestive) heart failure; N18.31 Chronic kidney disease, stage 3a; G20.A1 Parkinson's disease without dyskinesia, without mention of fluctuations; G31.83 Neurocognitive disorder with Lewy bodies; F02.80 Dementia in other diseases classified elsewhere, unspecified severity, without behavioral disturbance, psychotic disturbance, mood disturbance, and anxiety; Z11.52 Encounter for screening for COVID-19; J34.89 Other specified disorders of nose and nasal sinuses; I48.0 Paroxysmal atrial fibrillation; E78.5 Hyperlipidemia, unspecified; R79.89 Other specified abnormal findings of blood chemistry; E87.6 Hypokalemia; E87.20 Acidosis, unspecified; G89.29 Other chronic pain; M32.9 Systemic lupus erythematosus, unspecified; M48.54XA Collapsed vertebra, not elsewhere classified, thoracic region, initial encounter for fracture; D86.9 Sarcoidosis, unspecified; F31.9 Bipolar disorder, unspecified; Z86.711 Personal history of pulmonary embolism; Z79.01 Long term (current) use of anticoagulants; Z95.818 Presence of other cardiac implants and grafts; Z79.899 Other long term (current) drug therapy
CPT/HCPCS: A9575; G0378; J7030; J7512; Q9967

== ENCOUNTER 2024-01-25 00:54 | Emergency (ER) | payer MEDICARE ==
[~2024-01-25] VITALS: Ht 165.1 cm; Wt 56.8 kg
[~2024-01-25 00:54] MED LIST changes: +MASON NATURAL325 MG PO
[2024-01-25 00:55] VITALS: TEMP 97.8
[2024-01-25 01:55] LABS: BASO # 0.1 K/mm3 (0.0-0.2); BASO % 0.8 % (0.0-2.0); EOS # 0.2 K/mm3 (0.0-0.7); EOS % 2.4 % (0.0-4.0); GRAN # 5.1 K/mm3 (1.4-6.5); GRAN % 65.7 % (42.2-75.2); HEMATOCRIT 43.1 % (37.0-47.0); LYMPH # 1.5 K/mm3 (1.2-3.4); LYMPH % 19.5 % (20.0-51.0); MEAN CELL VOLUME 89 fl (80.0-100.0); MEAN CORPUSCULAR HEMOGLOBIN 29 pg (27-31); MEAN CORPUSCULAR HGB CONC 33 g/dl (33.0-37.0); MEAN PLATELET VOLUME 10.9 fl (7.4-10.4); MONO # 0.9 K/mm3 (0.1-0.6); PLATELET COUNT 220 K/mm3 (130-400); RED BLOOD COUNT 4.85 M/mm3 (4.10-5.30); REDCELL DISTRIBUTION WIDTH-CV 15.1 % (11.5-14.5)
[2024-01-25 02:14] LABS: ALBUMIN 3.3 g/dL (3.4-4.8); BILIRUBIN,TOTAL 0.5 mg/dL (0.2-1.2); CALCIUM 9.6 mg/dL (8.4-10.2); CREATININE, serum 0.86 mg/dL (0.57-1.11); MAGNESIUM 1.9 mg/dL (1.6-2.6); POTASSIUM 3.6 mEq/L (3.5-4.5); TOTAL PROTEIN 5.7 g/dl (6.2-8.1)
[2024-01-25 02:21] LABS: TROPONIN-I 0.103 ng/mL (0.00-0.033)
[2024-01-25 02:56] LABS: COLLECTION METHOD CLEAN CATCH
[2024-01-25] MEDS ORDERED: NS 50 ML IV SCH (03:08)
[2024-01-25] MEDS ORDERED: Iohexol 300 - 100 ML VIAL IV ONE (03:08)
[2024-01-25 03:09] LABS: URINE APPEARANCE CLOUDY (CLEAR/HAZY); URINE BLOOD 1+ (NEGATIVE); URINE COLOR YELLOW (YELLOW); URINE GLUCOSE NEGATIVE (NEGATIVE); URINE KETONE TRACE (NEGATIVE); URINE NITRATE NEGATIVE (NEGATIVE); URINE PROTEIN(semi-quant) 2+ (NEGATIVE)
[2024-01-25 03:23] LABS: MUCOUS PRESENT (NOT PRESENT); URINE BACTERIA RARE /hpf (NONE SEEN); URINE CALCIUM OXALATE CRYSTAL PRESENT (NOT PRESENT); URINE RBC NONE SEEN /hpf (0-2); URINE WBC None Seen /hpf (0-2)
[2024-01-25 06:11] VITALS: BP 123/93; PULSE 71
== END 2024-01-25 06:12 | disposition home or self-care (01) ==
LOC: COL.ER 00:54
PROVIDERS: Emergency Medicine
DX: J81.1 Chronic pulmonary edema (principal); R79.89 Other specified abnormal findings of blood chemistry
CPT/HCPCS: Q9967

== ENCOUNTER 2024-02-04 14:06 | Emergency (ER) | payer MEDICARE ==
[~2024-02-04] VITALS: Ht 165.1 cm; Wt 54.5 kg
[2024-02-04 14:18] VITALS: TEMP 98.1
[2024-02-04 15:04] LABS: BASO % 0.6 % (0.0-2.0); GRAN # 5.2 K/mm3 (1.4-6.5); GRAN % 78.6 % (42.2-75.2); HEMATOCRIT 46.5 % (37.0-47.0); HEMOGLOBIN 15.2 g/dl (12.5-16.0); LYMPH # 0.9 K/mm3 (1.2-3.4); LYMPH % 13.1 % (20.0-51.0); MEAN CELL VOLUME 87 fl (80.0-100.0); MEAN CORPUSCULAR HEMOGLOBIN 29 pg (27-31); MEAN CORPUSCULAR HGB CONC 33 g/dl (33.0-37.0); MEAN PLATELET VOLUME 10.9 fl (7.4-10.4); MONO # 0.5 K/mm3 (0.1-0.6); MONO % 6.9 % (1.7-9.3); PLATELET COUNT 241 K/mm3 (130-400); RED BLOOD COUNT 5.32 M/mm3 (4.10-5.30); REDCELL DISTRIBUTION WIDTH-CV 14.6 % (11.5-14.5)
[2024-02-04 15:09] LABS: PROTHROMBIN TIME 21.1 SECONDS (9.7-12.8)
[2024-02-04 15:35] LABS: ALBUMIN 3.6 g/dL (3.4-4.8); BILIRUBIN,TOTAL 0.6 mg/dL (0.2-1.2); CALCIUM 10.1 mg/dL (8.4-10.2); CREATININE, serum 0.92 mg/dL (0.57-1.11); POTASSIUM 4.2 mEq/L (3.5-4.5); TOTAL PROTEIN 6.3 g/dl (6.2-8.1)
[2024-02-04 15:48] LABS: TROPONIN-I 0.1 ng/mL (0.00-0.033)
[2024-02-04 16:46] VITALS: BP 98/81; PULSE 96
== END 2024-02-04 16:54 | disposition home or self-care (01) ==
LOC: COL.ER 14:06
PROVIDERS: Family Medicine
DX: R06.02 Shortness of breath (principal)